=== PATIENT | female | born 1980 | race Caucasian/White ===

== ENCOUNTER → 2018-06-10 13:28 | Outpatient (CLI) | payer MEDICAID, SELFPAY ==
[2018-06-10 13:56] LABS: Basophils % 0.5 % (0.1-2.0); Eosinophils # 0.1 K/mm3 (0.0-0.4); Hematocrit 38.8 % (37.0-47.0); Hemoglobin 11.7 g/dL (12.2-16.2); Lymphocytes # 1.5 K/mm3 (0.7-4.5); Lymphocytes % 32.7 % (10-50); Mean Corpuscular HGB Conc 30.2 g/dL (31.8-35.4); Mean Corpuscular Hemoglobin 23.8 pg (27.0-31.2); Mean Corpuscular Volume 78.8 fl (81-99); Mean Platelet Volume 10.1 fl (7.4-10.4); Monocytes # 0.3 K/mm3 (0.1-1.0); Monocytes % 5.6 % (1.7-9.3); Neutrophils # 2.8 K/mm3 (1.8-7.8); Neutrophils % 60.2 % (37.0-80.0); Platelet Count 215 K/mm3 (142-424); Red Blood Count 4.92 M/mm3 (4.20-5.40); Red Cell Distribution Width 17.8 % (11.5-17.5); White Blood Count 4.6 K/mm3 (4.8-10.8)
[2018-06-10 14:31] LABS: Alanine Aminotransferase 25 U/L (12-78); Albumin Level 4.2 gm/dL (3.4-5.0); Albumin/Globulin Ratio 1.2 (1.1-1.8); Alkaline Phosphatase 81 U/L (46-116); Anion Gap 16.7 mEq/L (5-15); Aspartate Amino Transferase 20 U/L (15-37); Bilirubin,Total 0.4 mg/dL (0.2-1.0); Blood Urea Nitrogen 7 mg/dL (7-18); Calcium 8.8 mg/dL (8.5-10.1); Carbon Dioxide 24 mmol/L (21.0-32.0); Chloride 105 mmol/L (98-107); Creatinine,Serum 0.66 mg/dL (0.55-1.02); Estimated Glomerular Filt Rate 100 ml/min (>60); Ferritin 6 ng/mL (8-388); Free T4 (Free Thyroxine) 0.77 ng/dl (0.76-1.46); GFR (African American) 121 ML/MIN (>60); Globulin 3.6 gm/dl (1.3-3.2); Glucose 89 mg/dL (74-106); Potassium 4.7 mmoL/L (3.5-5.1); Sodium 141 mmol/L (136-145); Thyroid Stimulating Hormone 2.25 uIU/ml (0.358-3.740); Total Protein,Serum 7.8 gm/dL (6.4-8.2)
[2018-06-10 14:41] LABS: Erythrocyte Sedimentation Rate 0 mm/hr (0-20)
[2018-06-11 07:14] LABS: Hep A Ab, IgM Negative (Negative); Hepatitis B Core Antibody IgM Negative (Negative); Hepatitis B Surface Antigen Negative (Negative)
[2018-06-11 07:18] LABS: Hepatitis C Antibody <0.1 s/co ratio (0.0-0.9)
[2018-06-11 09:14] LABS: Iron 21 ug/dL (27-159); UIBC 451 ug/dL (131-425)
[2018-06-12 05:35] LABS: Iron Saturation 4 % (15-55); Vitamin D 25 Hydroxy 30.1 ng/mL (30.0-100.0)
== END ==
PROVIDERS: Visit Provider Emergency Medicine
DX: F41.9 Anxiety disorder, unspecified (principal); R53.83 Other fatigue; R01.1 Cardiac murmur, unspecified; I34.1 Nonrheumatic mitral (valve) prolapse
CPT/HCPCS: 80053; 80074; 82652; 82728; 83540; 83550; 84439; 84443; 85025; 85651

== ENCOUNTER → 2018-07-06 09:32 | Outpatient (CLI) | payer MEDICAID, SELFPAY ==
--- NOTE | 2018-07-06 09:34 | CA_ITS ---
PROCEDURE: 2-D M-mode and color Doppler study INDICATIONS FOR THE TEST: Chest pain COPD Heart Murmur Tobacco Smoking Palpitations Fatigue Syncope Edema Hypertension Diabetes Mellitus Rheumatic Fever SOB HEATH Obesity Hyperlipidemia Family History HD Additional History HX MVP PATIENT INFORMATION HEIGHT: 64 WEIGHT:128 GENDER: Female B/P:140/81 2-D/M-MODE INTERPRETATION: 2-D MEASUREMENTS OBSERVED VALUES IN CMS Right Ventricular Dimension (RVDd) 1.4 Interventricular Septum (Thickness)(IVsd) 0.9 Left Ventricular Internal Dimensions(LVIDd) 4.6 Left Ventricular Posterior Wall (Thickness)(LVPWd) 0.5 Aortic Root 2.7 Aortic Cusp Separation 1.6 Left Atrial Dimensions (LAD) 2.9 2D 1. Left atrium is normal size, left ventricle is normal size, there is no concentric left ventricular hypertrophy, visually estimated ejection fraction 55% with no regional wall motion abnormality. 2. The right atrium and right ventricle are relatively normal size and function. 3. The aortic valve is grossly normal. 4. The mitral and tricuspid valve are grossly normal, there is no mitral valve prolapse. 5. The pulmonic valve is poorly visualized. 6. No significant pericardial effusion noted. DOPPLER INTERROGATION: Doppler interrogation of the aortic, mitral and tricuspid valvular presence of mild tricuspid regurgitation, tricuspid regurgitation jet velocity is inadequate for calculation of the right ventricular systolic pressure, diastolic parameters are within normal range. CONCLUSION: 1. Normal left ventricular size, preserved left ventricular systolic function, visually estimated ejection fraction of 55% with no regional wall motion abnormality, diastolic parameters are within normal range. 2. No obvious mitral valve prolapse or mitral regurgitation. 3. Mild tricuspid regurgitation. 4. No significant pericardial effusion noted.
[2018-07-06 21:25] LABS: Amphetamine/Metha Screen,Urine Negative ng/mL (<1000); Barbiturates Screen,Urine Negative ng/mL (<200); Benzodiazepines Screen,Urine Negative ng/mL (<200); Cannabinoid Screen,Urine Positive ng/mL (<50); Cocaine Screen,Urine Negative ng/mL (<300); Methadone Screen,Urine Negative ng/mL (<300); Opiate Screen,Urine Negative ng/mL (<300); Phencyclidine Screen,Urine Negative ng/mL (<25)
== END ==
PROVIDERS: Nurse Practitioner Family; PCP Emergency Medicine; Visit Provider Emergency Medicine
DX: I34.1 Nonrheumatic mitral (valve) prolapse (principal); R01.1 Cardiac murmur, unspecified; Z79.899 Other long term (current) drug therapy
CPT/HCPCS: 80305; 93306

== ENCOUNTER → 2018-07-06 19:10 | Outpatient (CLI) | payer MEDICAID, SELFPAY | PROVIDERS: Visit Provider Emergency Medicine | DX: Z79.899 Other long term (current) drug therapy (principal) | CPT/HCPCS: 80305 ==

== ENCOUNTER → 2018-07-13 16:54 | Outpatient (CLI) | payer MEDICAID, SELFPAY ==
--- NOTE | 2018-07-13 16:57 | MM_ITS ---
MM Dig screening mamm BI w/CAD CAD Screening COMPARISON: None, this is baseline INDICATION: There is a history of breast cancer in patient's maternal aunt and maternal cousins. TECHNIQUE: Standard CC and MLO images were obtained. R2 CAD reviewed. FINDINGS: Prominent diffuse somewhat heterogenic fibroglandular densities are seen throughout both breasts. The findings are bilateral and symmetrical. There is no suspicious lesion in either breast and there are no suspicious microcalcifications. IMPRESSION: Diffusely dense parenchymal pattern with no suspicious lesion seen BI-RADS Category: 1 Negative RECOMMENDED FOLLOW-UP: 1YR - 1 YEAR FOLLOW-UP (A letter has been sent to the patient regarding results of the study.)
== END ==
PROVIDERS: PCP Emergency Medicine; Visit Provider Emergency Medicine
DX: N63.20 Unspecified lump in the left breast, unspecified quadrant (principal); Z12.31 Encounter for screening mammogram for malignant neoplasm of breast
CPT/HCPCS: 77067

== ENCOUNTER → 2018-07-27 14:17 | Outpatient (CLI) | payer MEDICAID, SELFPAY ==
[2018-07-27 14:42] LABS: Amphetamine/Metha Screen,Urine Negative ng/mL (<1000); Barbiturates Screen,Urine Negative ng/mL (<200); Benzodiazepines Screen,Urine Negative ng/mL (<200); Cannabinoid Screen,Urine Positive ng/mL (<50); Cocaine Screen,Urine Negative ng/mL (<300); Methadone Screen,Urine Negative ng/mL (<300); Opiate Screen,Urine Negative ng/mL (<300); Phencyclidine Screen,Urine Negative ng/mL (<25)
[2018-08-01 06:15] LABS: Alprazolam Negative (Cutoff=100); Benzodiazepines Positive ng/mL (Cutoff=100); Clonazepam Positive (.); Flurazepam Negative (Cutoff=100); Lorazepam Negative (Cutoff=100); Midazolam Negative (Cutoff=100); Temazepam Negative (Cutoff=100); Triazolam Negative (Cutoff=100)
[2018-08-01 07:01] LABS: Clonazepam Confirm 200 ng/mL (Cutoff=100)
== END ==
PROVIDERS: Visit Provider Emergency Medicine
DX: Z79.899 Other long term (current) drug therapy (principal)
CPT/HCPCS: 80305; 80346

== ENCOUNTER → 2018-10-24 13:56 | Outpatient (CLI) | payer MEDICAID, SELFPAY ==
[2018-10-24 14:28] LABS: Amphetamine/Metha Screen,Urine Negative ng/mL (<1000); Barbiturates Screen,Urine Negative ng/mL (<200); Benzodiazepines Screen,Urine Negative ng/mL (<200); Cannabinoid Screen,Urine Positive ng/mL (<50); Cocaine Screen,Urine Negative ng/mL (<300); Methadone Screen,Urine Negative ng/mL (<300); Opiate Screen,Urine Negative ng/mL (<300); Phencyclidine Screen,Urine Negative ng/mL (<25)
[2018-11-02 09:18] LABS: Alprazolam Negative (Cutoff=100); Benzodiazepines Negative ng/mL (Cutoff=100); Clonazepam Negative (Cutoff=100); Flurazepam Negative (Cutoff=100); Lorazepam Negative (Cutoff=100); Midazolam Negative (Cutoff=100); Temazepam Negative (Cutoff=100); Triazolam Negative (Cutoff=100)
== END ==
PROVIDERS: Visit Provider Emergency Medicine
DX: Z79.899 Other long term (current) drug therapy (principal)
CPT/HCPCS: 80305; 80346

== ENCOUNTER → 2019-01-23 13:32 | Outpatient (CLI) | payer MEDICAID, SELFPAY ==
[2019-01-23 14:25] LABS: Amphetamine/Metha Screen,Urine Negative ng/mL (<1000); Barbiturates Screen,Urine Negative ng/mL (<200); Benzodiazepines Screen,Urine Negative ng/mL (<200); Cannabinoid Screen,Urine Positive ng/mL (<50); Cocaine Screen,Urine Negative ng/mL (<300); Methadone Screen,Urine Negative ng/mL (<300); Opiate Screen,Urine Negative ng/mL (<300); Phencyclidine Screen,Urine Negative ng/mL (<25)
== END ==
PROVIDERS: Visit Provider Emergency Medicine
DX: M79.7 Fibromyalgia (principal)
CPT/HCPCS: 80305

== ENCOUNTER 2020-05-31 14:32 | Emergency (ER) | payer MEDICAID, SELFPAY ==
[2020-05-31 15:17] VITALS: BP 110/61; PULSE 75; RESP 18; TEMP 36.6; O2SAT 100; BMI 18.9
--- NOTE | 2020-05-31 15:38 | HMH.EDUTC ---
[facility] [place] Clinical Impression: UTI (urinary tract infection) Qualifiers: Urinary tract infection type: site unspecified Hematuria presence: with hematuria Qualified Code(s): N39.0 - Urinary tract infection, site not specified Disposition: Home, Self-Care Condition on Discharge: Good Instructions: Urinary Tract Infection, DI for Urinary Tract Infection (UTI) Additional Instructions: Drink plenty of fluids. Take tylenol or ibuprofen for pain or fever. Take the medications as directed. Follow up with your regular doctor. GO TO THE ER FOR ANY WORSENING SYMPTOMS The pyridium will make your urine turn orange, this is an expected side effect. It will stain your clothes if it comes into contact with them. Prescriptions: Ondansetron [Zofran 4mg ODT] 4 mg PO Q8HP PRN #12 tab.rapdis PRN Reason: Nausea Transmission Status: Received by [facility] Ciprofloxacin HCl [Cipro 500mg Tab] 500 mg PO BID 7 Days #14 tab Transmission Status: Received by [facility] Phenazopyridine HCl [Pyridium 200mg Tablet] 200 pow PO TID #6 tab Transmission Status: Received by [facility] Referrals: Johnie Piedra MD [Primary Care Provider] - Time of Disposition: 15:54 Medical Decision Making - Medical Records Medical records reviewed: No: I reviewed the patient's medical records. - Ulises Inquiry Pt receiving controlled substance: No Vital Signs: 05/31/20 15:17 05/31/20 15:57 Temperature 97.9 F 97.9 F Temperature Source Oral Pulse Rate 75 Pulse Rate [Right Brachial] 75 Respiratory Rate 18 18 Blood Pressure 110/61 Blood Pressure [Right Arm] 110/61 Blood Pressure Mean [Right Arm] 77 Blood Pressure Source [Right Arm] Automatic Cuff Blood Pressure Position [Right Arm] Sitting 02 Sat by Pulse Oximetry 100 Oxygen Delivery Method Room Air - Lab Data Lab results reviewed: Yes: I reviewed the patient's lab results. Lab Results 05/31/20 15:44: Urine Color Yellow, Urine Appearance Clear, Urine pH 6.0, Ur Specific [place] <= 1.005, Urine Protein Negative, Urine Glucose (UA) Negative, Urine Ketones Negative, Urine Blood 2+, Urine Nitrate Negative, Urine Bilirubin Negative, Urine Urobilinogen 0.2, Ur Leukocyte Esterase 2+ A Orders (Tests/Meds): ORDERS Category Date Time Status Urine Culture Stat Micro 05/31/20 13:10 [place] [facility] [place] - General Stated complaint: Possible kidney infection Time Seen by Provider: 05/31/20 15:42 Mode of Arrival: Ambulatory Source of Information: Patient Limitations: No Limitations Description of Symptoms (Recalled from Triage Doc. by RN): PATIENT C/O BURNING WITH URINATION HEENT Symptoms (Recalled from RN notes): No Resp Symptoms (Recalled from RN notes): No Skin Symptoms (Recalled from RN notes): No MS Symptoms (Recalled from RN notes): No Functional Status (Recalled from RN notes): WNL - History of Present Illness Provider Complaint: She states that since yesterday she has had low back pain and burning with urination. - Related Data Previous Rx's Medication Instructions Recorded Ciprofloxacin HCl [Cipro 500mg 500 mg PO BID 7 Days #14 tab 05/31/20 Tab] Ondansetron [Zofran 4mg ODT] 4 mg PO Q8HP PRN #12 tab.rapdis 05/31/20 Phenazopyridine HCl [Pyridium 200 pow PO TID #6 tab 05/31/20 200mg Tablet] Allergies Allergy/AdvReac Type Severity Reaction Status Date / Time No Known Allergies Allergy Verified 05/31/20 15:25 - Worker's Comp Is this a Worker's Comp case?: No [facility] History - Hepatitis A Screen Drug use history?: No High risk sexual behaviors?: No History of sexually transmitted infection?: No Currently employed?: No Childcare worker?: No Do you have indoor plumbing?: Yes Do you have electricity?: Yes Attestation statement:: This patient has been screened for Hepatitis A risk factors. I have reviewed the patient's past medical history: Y
[2020-05-31 15:57] VITALS: BP 110/61; PULSE 75; RESP 18; TEMP 36.6; O2SAT 100
[2020-05-31 16:45] LABS: Apearance,Urine Clear (Clear); Color,Urine Yellow (Yellow); Specific Gravity, Urine <= 1.005 (1.005-1.030)
[2020-05-31 16:46] LABS: Bilirubin,Urine Negative (Negative); Blood, Urine 2+ (Negative); Glucose,Urine (UA) Negative (Negative); Ketones,Urine Negative (Negative); Protein,Urine Negative (Negative); Urobilinogen,Urine 0.2 EU/dl (0.2)
[2020-05-31 16:47] LABS: UTC Leukocyte Esterase,Urine 2+ (Negative); UTC Nitrate,Urine Negative (Negative)
== END 2020-05-31 16:05 | disposition home or self-care (01) ==
PROVIDERS: Emergency Provider Nurse Practitioner Family; PCP Emergency Medicine
DX: N30.00 Acute cystitis without hematuria (principal)
CPT/HCPCS: 81003; 87086; 87088; 87186; 99201

== ENCOUNTER 2020-06-15 12:35 | Emergency (ER) | payer MEDICAID, SELFPAY ==
[2020-06-15 12:53] VITALS: BP 132/87; PULSE 94; RESP 18; TEMP 36.9; O2SAT 99; BMI 18.8
--- NOTE | 2020-06-15 13:10 | HMH.EDUTC ---
[facility] [place] Clinical Impression: UTI (urinary tract infection) Qualifiers: Urinary tract infection type: site unspecified Hematuria presence: with hematuria Qualified Code(s): N39.0 - Urinary tract infection, site not specified; R31.9 - Hematuria, unspecified Disposition: Home, Self-Care Condition on Discharge: Good Instructions: DI for Urinary Tract Infection (UTI), Urinary Tract Infection, Nitrofurantoin Additional Instructions: *Increase fluids. Water not Soda or Tea *Start antibiotic immediately and be sure to take as ordered for the FULL length of time although you should start to see improvement over the next 48 hours *Pyridium as needed Remember this medication will turn your urine Lamb. This is normal but it will stain what ever it gets on *You should not use Pyridium for more than 48 hours. If so , follow up with your primary physician to review urine culture and ensure that antibiotic is adequate for infection *Be SURE to follow up anytime for new or worsening symptoms with your family doctor. AND in 48 hours for urine culture results with your family doctor, if you do not have a doctor then you may call back to the [facility] for urine culture results and further treatment. We do recommend that you choose and establish care with a Primary Care Physician. AND follow up with them in 10-14 days to repeat UA to ensure infection is resolved and blood no longer present *Be sure to let your PCP know that we sent urine cultures from the [facility] so they can follow up to ensure that you area the on the correct antibiotic Call your doctor office and make appointment for 48 hours (2 days from today) to follow up and get the results of your urine culture and further treatment Prescriptions: Nitrofurantoin Monohyd/M-Cryst [Macrobid 100 mg Capsule] 100 mg PO BID 10 Days #20 cap Transmission Status: Pending to [facility] # Phenazopyridine HCl [Pyridium 200mg Tablet] 200 pow PO TID #6 tab Transmission Status: Pending to [facility] # Referrals: Johnie Piedra MD [Primary Care Provider] - As needed Time of Disposition: 13:33 Medical Decision Making - Ulises Inquiry Pt receiving controlled substance: No Ulises was queried for this patient: No Vital Signs: 06/15/20 12:53 Temperature 98.4 F Temperature Source Oral Pulse Rate [Right Brachial] 94 H Respiratory Rate 18 Blood Pressure [Right Arm] 132/87 Blood Pressure Mean [Right Arm] 102 Blood Pressure Source [Right Arm] Automatic Cuff Blood Pressure Position [Right Arm] Sitting 02 Sat by Pulse Oximetry 99 - Lab Data Lab results reviewed: Yes: I reviewed the patient's lab results. Lab Results 06/15/20 12:50: Urine Color Yellow, Urine Appearance Turbid, Urine pH 6.0, Ur Specific [place] 1.025, Urine Protein 2+, Urine Glucose (UA) Negative, Urine Ketones Negative, Urine Blood 3+, Urine Nitrate Negative, Urine Bilirubin Negative, Urine Urobilinogen 0.2, Ur Leukocyte Esterase 2+ A Orders (Tests/Meds): ED MEDICATIONS Discontinued Medications Generic Name Dose Route Start Last Admin Trade Name Freq PRN Reason Stop Dose Admin Ceftriaxone Sodium 1 gm 06/15/20 13:19 06/15/20 13:31 Ceftriaxone 1gm Vial IM 06/15/20 13:20 1 gm ONCE ONE Administration Protocol Lidocaine HCl 0 ml 06/15/20 13:19 06/15/20 13:31 Lidocaine 1% 5ml Pf Vial IM 06/15/20 13:20 2.1 ml ONCE ONE Administration ORDERS Category Date Time Status Urinalysis and Microscopic Stat Lab 06/15/20 12:50 Results Urine Culture Stat Micro 06/15/20 12:50 Received Medical Decision Narrative: Viewed patient previous urine culture that was obtained on 05/31/20 and patient was on Cipro which shows resistant to Bacteria grown on culture (Ecoli) patient educated on importantance of follow up when urine cultures are done to make sure that you are on the correct medication to clear up the infection [facility] [place] - General Stated complaint: kidney
[2020-06-15 13:23] LABS: Microscopic, Urine URINE MICROSCOPIC (MICROSCOPIC)
[2020-06-15 13:25] LABS: Bilirubin,Urine Negative (Negative); Blood, Urine 3+ (Negative); Color,Urine YELLOW (Yellow); Glucose,Urine (UA) Negative (Negative); Ketones,Urine Negative (Negative); Leukocyte Esterase,Urine 2+ (Negative); Nitrate,Urine Negative (Negative); Protein,Urine 2+ (Negative); Specific Gravity, Urine 1.025 (1.005-1.030); Urobilinogen,Urine 0.2 EU/dl (0.2)
[2020-06-15 13:27] LABS: Appearance,Urine Turbid (Clear)
[2020-06-15 13:48] VITALS: BP 132/87; PULSE 94; RESP 18; TEMP 36.9; O2SAT 99
[2020-06-15 14:23] LABS: Bacteria,Urine 1+ /lpf
== END 2020-06-15 13:49 | disposition home or self-care (01) ==
PROVIDERS: Emergency Provider Nurse Practitioner; PCP Emergency Medicine
DX: N30.00 Acute cystitis without hematuria (principal); B96.20 Unspecified Escherichia coli [E. coli] as the cause of diseases classified elsewhere; F41.8 Other specified anxiety disorders; M79.7 Fibromyalgia; F17.210 Nicotine dependence, cigarettes, uncomplicated
CPT/HCPCS: 81001; 87086; 87088; 87186; 96372; 99202

== ENCOUNTER → 2021-05-22 18:34 | Outpatient (CLI) | payer MEDICAID, SELFPAY | PROVIDERS: PCP Emergency Medicine; Visit Provider Nurse Practitioner | DX: Z20.822 Contact with and (suspected) exposure to COVID-19 (principal) | CPT/HCPCS: C9803; U0003; U0005 ==

== ENCOUNTER 2021-08-25 13:53 | Inpatient (IN) | payer MEDICAID, SELFPAY ==
[2021-08-25] VITALS (17 sets, daily range): BP systolic 91–105; BP diastolic 45–78; PULSE 71–134; RESP 16–22; TEMP 36.4–39.5; O2SAT 96–100; BMI 19.7; BMI 21.6
--- NOTE | 2021-08-25 14:20 | XR_ITS ---
FINAL REPORT TECHNIQUE: Single view chest CLINICAL HISTORY: cough, fever FINDINGS: A single view of the chest was obtained. The heart and mediastinum are within normal limits. The lungs are clear. There is no pneumothorax. Osseous structures are unremarkable. IMPRESSION: No acute cardiopulmonary process. Reviewed, Interpreted and Dictated by Александр Mckinnon MD Transcribed by Dodie Shore Authenticated by Александр Mckinnon MD on 08/25/2021 04:07:22 PM [facility]
[2021-08-25 14:29] LABS: Microscopic, Urine URINE MICROSCOPIC (MICROSCOPIC)
[2021-08-25 14:31] LABS: Appearance,Urine CLEAR (Clear); Bilirubin,Urine Negative (Negative); Blood, Urine TRACE-I (Negative); Color,Urine STRAW (Yellow); Glucose,Urine (UA) Negative (Negative); Ketones,Urine Negative (Negative); Leukocyte Esterase,Urine 3+ (Negative); Nitrate,Urine Negative (Negative); Protein,Urine 1+ (Negative); Urobilinogen,Urine 0.2 EU/dl (0.2)
[2021-08-25 14:34] LABS: Urine Pregnancy, HCG Qual. Negative (Negative)
[2021-08-25 14:44] LABS: Lactic Acid 1.7 mmol/L (0.7-2.1)
[2021-08-25 14:44] LABS: Alanine Aminotransferase 18 U/L (12-78); Albumin Level 4.6 g/dl (3.5-5.0); Albumin/Globulin Ratio 1.4 (1.1-1.8); Alkaline Phosphatase 85 U/L (38-126); Anion Gap 15.7 mEq/L (5-15); Aspartate Amino Transferase 34 U/L (14-36); Basophils % 0.1 % (0.1-2.0); Bilirubin,Total 1.4 mg/dl (0.2-1.3); Blood Urea Nitrogen 4 mg/dl (7-17); Calcium 9.6 mg/dl (8.4-10.2); Carbon Dioxide 24 mmol/L (22.0-30.0); Chloride 95 mmol/L (98-107); Creatinine Clearance Estimated 101 mL/min (50-200); Estimated Glomerular Filt Rate 110 ml/min (>60); GFR (African American) 133 ML/MIN (>60); Globulin 3.4 g/dL (1.3-3.2); Glucose 119 mg/dl (74-100); Hematocrit 23.4 % (37.0-47.0); Lipase 12 U/L (23-300); Lymphocytes # 0.9 K/mm3 (0.7-4.5); Lymphocytes % 6.1 % (10-50); Mean Corpuscular HGB Conc 26.2 g/dL (31.8-35.4); Mean Corpuscular Hemoglobin 16.8 pg (27.0-31.2); Mean Corpuscular Volume 64.2 fl (81-99); Mean Platelet Volume 7.6 fl (7.4-10.4); Monocytes # 0.7 K/mm3 (0.1-1.0); Monocytes % 4.5 % (1.7-9.3); Neutrophils % 89.2 % (37.0-80.0); Platelet Count 186 K/mm3 (142-424); Potassium 3.7 mmoL/L (3.5-5.1); Red Blood Count 3.65 M/mm3 (4.20-5.40); Red Cell Distribution Width 19.2 % (11.5-17.5); Sodium 131 mmol/L (136-145); White Blood Count 14.6 K/mm3 (4.8-10.8)
[2021-08-25 14:47] LABS: Bacteria,Urine 1+ /lpf; RBC,Urine Occasional #/hpf (0-3); WBC,Urine 20-50 #/hpf (0-3)
[2021-08-25 15:01] LABS: Troponin I < 0.01 ng/ml (0.00-0.034)
--- NOTE | 2021-08-25 15:03 | CT_ITS ---
FINAL REPORT TECHNIQUE: After the administration of intravenous contrast, axial images were obtained through the abdomen and pelvis by computed tomography. This study was performed with technique to keep radiation doses as low as reasonably achievable, (ALARA). Individualized dose reduction techniques using automated exposure control or adjustment of the MA and/or KV according to the patient's size were employed. CLINICAL HISTORY: abd pain with distension FINDINGS: Abdomen: The lung bases are clear. The liver is normal in size and attenuation. The spleen is unremarkable. The adrenals are normal. The pancreas is unremarkable. The kidneys enhance appropriately. There is mild bilateral hydronephrosis. The aorta is normal in caliber. There is no free fluid or adenopathy. Pelvis: The appendix is normal. The urinary bladder is unremarkable. There is no free fluid or adenopathy. A large, midline pelvic mass is seen which appears to represent a diffusely enlarged uterus containing a large amount of heterogeneous debris. Uterus measures 14.7 cm in transverse dimension and 13.3 cm in AP dimension. IMPRESSION: Markedly enlarged uterus containing large amount of heterogeneous material. Neoplasia not excluded. Recommend gynecologic evaluation. Reviewed, Interpreted and Dictated by Александр Mckinnon MD Transcribed by Dodie Shore Authenticated by Александр Mckinnon MD on 08/25/2021 04:58:09 PM [facility]
[2021-08-25 15:09] LABS: Hemoglobin 6.1 g/dL (12.2-16.2)
[2021-08-25 15:10] LABS: MANUAL DIFFERENTIAL MANUAL DIFFERENTIAL (MANUAL DIFF)
--- NOTE | 2021-08-25 15:19 | HMH.EDGENADL ---
ED Disposition Clinical Impression: Endometritis UTI (urinary tract infection) Qualifiers: Urinary tract infection type: acute cystitis Hematuria presence: with hematuria Qualified Code(s): N30.01 - Acute cystitis with hematuria Sepsis Qualifiers: Sepsis type: sepsis due to unspecified organism Sepsis acute organ dysfunction status: unspecified Qualified Code(s): A41.9 - Sepsis, unspecified organism Disposition: Admitted As Inpatient Condition on Discharge: Serious Referrals: Johnie Piedra MD [Primary Care Provider] - - Critical Care Critical Care Time: No Attestation: On 08/25/21, the high probability of a clinically significant, sudden or life threatening deterioration of the following system(s) required my full and direct attention, intervention and personal management. The time I documented below is in addition to time spent performing reported procedures but includes the following listed in this critical care notation. Medical Decision Making - Medical Records Medical records reviewed: Yes: I reviewed the patient's medical records. - Ulises Inquiry Pt receiving controlled substance: No Vital Signs: 08/25/21 13:55 08/25/21 16:49 Temperature 103.1 F H 98.9 F Temperature Source Oral Oral Pulse Rate 98 H Pulse Rate [Radial] 134 H Respiratory Rate 20 20 Blood Pressure 103/50 L Blood Pressure [Right Arm] 105/78 L Blood Pressure Mean [Right Arm] 87 Blood Pressure Position Sitting Blood Pressure Position [Right Arm] Sitting 02 Sat by Pulse Oximetry 96 98 Oxygen Delivery Method Room Air Room Air - Lab Data Lab Results 08/25/21 14:00: Urine HCG, Qual Negative 08/25/21 14:12: Lactate 1.7 08/25/21 14:12: SARS-CoV-2 (PCR) Not detected, Influenza A Untype (PCR) Not detected, Influenza Type B (PCR) Not detected 08/25/21 14:15: WBC 14.6 H, RBC 3.65 L, Hgb 6.1 L*, Hct 23.4 L, MCV 64.2 L, MCH 16.8 L, MCHC 26.2 L, RDW 19.2 H, Plt Count 186, MPV 7.6, Neut % (Auto) 89.2 H, Lymph % (Auto) 6.1 L, [place] % (Auto) 4.5, Eos % (Auto) 0.0 L, Baso % (Auto) 0.1, Neut # (Auto) 13.0 H, Lymph # (Auto) 0.9, [place] # (Auto) 0.7, Eos # (Auto) 0.0, Baso # (Auto) 0.0, Total Counted 100, Neutrophils % (Manual) 90 H, Band Neutrophils % 2.0, Lymphocytes % (Manual) 6 L, Monocytes % (Manual) 2, Platelet Estimate Normal, Hypochromasia 3+, Anisocytosis 2+, Microcytosis 2+ 08/25/21 14:15: Sodium 131 L, Potassium 3.7, Chloride 95 L, Carbon Dioxide 24, Anion Gap 15.7 H, BUN 4 L, Creatinine 0.60, Estimated Creat Clear 101, Estimated GFR 110, Est GFR ( Amer) 133, Glucose 119 H, Calcium 9.6, Total Bilirubin 1.4 H, AST 34, ALT 18, Alkaline Phosphatase 85, Total Protein 8.0, Albumin 4.6, Globulin 3.4 H, Albumin/Globulin Ratio 1.4 08/25/21 14:15: Urine Color Straw, Urine Appearance Clear, Urine pH 7.0, Ur Specific [place] 1.010, Urine Protein 1+, Urine Glucose (UA) Negative, Urine Ketones Negative, Urine Blood Trace-i, Urine Nitrate Negative, Urine Bilirubin Negative, Urine Urobilinogen 0.2, Ur Leukocyte Esterase 3+ A, Urine RBC Occasional, Urine WBC 20-50, Ur Squamous Epith Cells 5-10, Urine Bacteria 1+ 08/25/21 14:15: Troponin I < 0.01, Lipase 12 L 08/25/21 14:15: Blood Type Confirm B Negative 08/25/21 15:25: Blood Type B Negative, Antibody Screen Negative, Crossmatch (AHG) See Detail Result diagrams: 08/25/21 14:15 08/25/21 14:15 Orders (Tests/Meds): ED MEDICATIONS Generic Name Dose Route Start Last Admin Trade Name Freq PRN Reason Stop Dose Admin Ceftriaxone Sodium 1 gm/ 50 mls @ 100 mls/hr 08/25/21 15:15 08/25/21 15:07 Sodium Chloride IV 09/08/21 15:14 100 mls/hr Q24H VANESSA Administration Sodium Chloride 250 mls @ 25 mls/hr 08/25/21 15:15 Sod Chlor 0.9% 250ml Bag IV 08/26/21 15:14 .Q10H VANESSA Discontinued Medications Generic Name Dose Route Start Last Admin Trade Name Freq PRN Reason Stop Dose Admin Acetaminophen 1,000 mg 08/25/21 14:04 08/25/21 14:10 Acetaminophen 500mg Tab PO 08/25/21 14:
[2021-08-25 15:22] LABS: Coronavirus 19, PCR Not Detected (NotDetected); Influenza A, PCR Not Detected (NotDetected); Influenza B, PCR Not Detected (NotDetected)
[2021-08-25 16:38] LABS: Anisocytosis 2+; Hypochromasia 3+; Lymphocytes % 6 % (10-50); Microcytosis 2+; Monocytes % 2 % (2-9); Neutrophils % 90 % (42-76); Platelet Estimate Normal; Total Cells Counted 100
--- NOTE | 2021-08-25 17:30 | PC.NURSE ---
DR. STEWARD AT BEDSIDE
--- NOTE | 2021-08-25 17:44 | HMH.HP ---
*Admission Date: 08/25/21 *Chief complaint: Lower abdominal pain, anemia, UTI *History of present illness: She is a 41-year-old 3 para 3 lady who complains of a 4-day history of lower abdominal pain. She also has some abdominal distention. She has a mild white count and severe anemia with a hemoglobin of 6.1. Her urinalysis shows 3+ leuk esterase. She has a history of recurrent urinary tract infections. She does admit to a new partner over the last few months. She says that her fianc? of 5 years was cheating on her so she broke out off late last year. CT scan shows an enlarged uterus 14 cm in length with some tissue within the endometrial cavity. Its not clear whether she has an endometritis or possible STD. She does have a temperature as well as a white count so we will go ahead and admit her for IV antibiotics and possible endometritis. She also has a urinary tract infection. [facility] History I have reviewed the patient's past medical history: Yes Medical History: Reports:: Anxiety, Depression, Valvular Heart Disease *Have you ever received a pneumonia vaccine?: No *Have you received a flu vaccine this season?: No Other Medical History: Reports: Fibromyalgia Laterality Cases: Bilateral: Tonsillectomy Other Surgeries: Yes: Appendectomy, Amputation: No Fractures: No - *Social History Smoking Status: Current every day smoker # Packs/Day (cigarettes): 1 Alcohol Intake: never Alcohol Intake Frequency:: other Substance Use Type: marijuana, denies use *Occupational Status:: employed Household Members: spouse *Travel in the last 8 weeks: None - Psychiatric History Pschychiatric History:: Reports:: Anxiety, Depression Family Hx:: Cancer, Heart Attack Review of Systems - Review of Systems Review of systems:: pertinent systems reviewed and negative unless documented below - *Neurologic Denies headache(s) Meds Home Medications Medication Instructions Recorded Confirmed Type Escitalopram Oxalate 10 mg PO DAILY 08/25/21 08/25/21 History Gabapentin 600 mg PO TID 08/25/21 08/25/21 History Tramadol HCl [Tramadol 50mg 50 mg PO BID 08/25/21 08/25/21 History Tab] clonazePAM [Clonazepam] 0.5 mg PO TID 08/25/21 08/25/21 History Allergies Allergy/AdvReac Type Severity Reaction Status Date / Time No Known Allergies Allergy Verified 06/03/20 09:20 Exam Vital signs and Labs for Last 24 Hours: Temp Pulse Resp BP Pulse Ox 98.9 F 98 H 20 103/50 L 98 08/25/21 16:49 08/25/21 16:49 08/25/21 16:49 08/25/21 16:49 08/25/21 16:49 Laboratory Results - last 24 hr 08/25/21 14:00: Urine HCG, Qual Negative 08/25/21 14:12: Lactate 1.7 08/25/21 14:12: SARS-CoV-2 (PCR) Not detected, Influenza A Untype (PCR) Not detected, Influenza Type B (PCR) Not detected 08/25/21 14:15: WBC 14.6 H, RBC 3.65 L, Hgb 6.1 L*, Hct 23.4 L, MCV 64.2 L, MCH 16.8 L, MCHC 26.2 L, RDW 19.2 H, Plt Count 186, MPV 7.6, Neut % (Auto) 89.2 H, Lymph % (Auto) 6.1 L, [place] % (Auto) 4.5, Eos % (Auto) 0.0 L, Baso % (Auto) 0.1, Neut # (Auto) 13.0 H, Lymph # (Auto) 0.9, [place] # (Auto) 0.7, Eos # (Auto) 0.0, Baso # (Auto) 0.0, Total Counted 100, Neutrophils % (Manual) 90 H, Band Neutrophils % 2.0, Lymphocytes % (Manual) 6 L, Monocytes % (Manual) 2, Platelet Estimate Normal, Hypochromasia 3+, Anisocytosis 2+, Microcytosis 2+ 08/25/21 14:15: Sodium 131 L, Potassium 3.7, Chloride 95 L, Carbon Dioxide 24, Anion Gap 15.7 H, BUN 4 L, Creatinine 0.60, Estimated Creat Clear 101, Estimated GFR 110, Est GFR ( Amer) 133, Glucose 119 H, Calcium 9.6, Total Bilirubin 1.4 H, AST 34, ALT 18, Alkaline Phosphatase 85, Total Protein 8.0, Albumin 4.6, Globulin 3.4 H, Albumin/Globulin Ratio 1.4 08/25/21 14:15: Urine Color Straw, Urine Appearance Clear, Urine pH 7.0, Ur Specific [place] 1.010, Urine Protein 1+, Urine Glucose (UA) Negative, Urine Ketones Negative, Urine Blood Trace-i, Urine Nitrate Negative, Urine Bilirubin Negative, Urine Urobilinogen 0.2, Ur Le
--- NOTE | 2021-08-25 18:05 | PC.NURSE ---
REPORT CALLED TO FLOOR
[2021-08-26] VITALS (15 sets, daily range): BP systolic 97–156; BP diastolic 46–76; PULSE 80–95; RESP 14–21; TEMP 36.4–38.4; O2SAT 95–100; BMI 21.6
[2021-08-26 04:49] LABS: Basophils % 0.1 % (0.1-2.0); Eosinophils % 0.4 % (0.1-12.0); Hematocrit 26.1 % (37.0-47.0); Lymphocytes # 0.8 K/mm3 (0.7-4.5); Lymphocytes % 8.5 % (10-50); Mean Corpuscular HGB Conc 30.2 g/dL (31.8-35.4); Mean Corpuscular Hemoglobin 20.4 pg (27.0-31.2); Mean Corpuscular Volume 67.6 fl (81-99); Monocytes # 0.7 K/mm3 (0.1-1.0); Monocytes % 7.2 % (1.7-9.3); Neutrophils # 7.8 K/mm3 (1.8-7.8); Neutrophils % 83.9 % (37.0-80.0); Platelet Count 151 K/mm3 (142-424); Red Blood Count 3.85 M/mm3 (4.20-5.40); Red Cell Distribution Width 24.3 % (11.5-17.5); White Blood Count 9.3 K/mm3 (4.8-10.8)
[2021-08-26 04:57] LABS: Chloride 102 mmol/L (98-107); Sodium 132 mmol/L (136-145)
[2021-08-26 04:58] LABS: Potassium 3.6 mmoL/L (3.5-5.1)
[2021-08-26 04:59] LABS: Hemoglobin 7.9 g/dL (12.2-16.2)
[2021-08-26 05:00] LABS: Blood Urea Nitrogen 12 mg/dl (7-17); Creatinine Clearance Estimated 110 mL/min (50-200); Estimated Glomerular Filt Rate 110 ml/min (>60); GFR (African American) 133 ML/MIN (>60)
[2021-08-26 05:01] LABS: Anion Gap 10.6 mEq/L (5-15); Calcium 8.1 mg/dl (8.4-10.2); Carbon Dioxide 23 mmol/L (22.0-30.0); Glucose 88 mg/dl (74-100)
--- NOTE | 2021-08-26 07:24 | HMH.PHAVTE ---
[facility] Pharmacy VTE Monitoring - Patient Demographics Admission date: 08/25/21 Report Date: 08/26/21 Time: 07:24 Allergies/Adverse Reactions: Patient Allergies No Known Allergies Allergy (Verified 06/03/20 09:20) Height: 1.63 m Weight: 57.516 kg Patient Problems: Current Active Problems (This Medical Record has been edited. Action required.) Endometritis (Acute) Sepsis (Acute) Uterine hypertrophy (Acute) Anemia (Acute) UTI (urinary tract infection) (Acute) - VTE Risk Labs: VTE Related Lab Results Hgb 7.9 g/dL (12.2-16.2) L D 08/26/21 04:35 Hct 26.1 % (37.0-47.0) L 08/26/21 04:35 Plt Count 151 K/mm3 (142-424) 08/26/21 04:35 BUN 12 mg/dl (7-17) D 08/26/21 04:35 Creatinine 0.60 mg/dl (0.52-1.04) 08/26/21 04:35 Estimated Creat Clear 110 mL/min (50-200) 08/26/21 04:35 VTE Score: 4 VTE Risk Level: Low Risk - Prophylaxis VTE Prophylaxis Ordered?: Yes Types of VTE Prophylaxis: TEDS Knee High, Pharmacological Location of Applied Device: Bilateral Lower Extremeties Pharmacologic Type: Enoxaparin
--- NOTE | 2021-08-26 09:25 | HMH.CONS ---
*Admission Date: 08/25/21 *Reason for consult:: Abdominal Pain *History of present illness: 41-year-old female patient presents emergency room emergency department with reports of lower abdominal pain x4 days. She also has abdominal. She did have an elevated white count and a hemoglobin of 6.1. Urinalysis revealed 3+ leukocyte esterase, with a history of recurrent urinary tract infections. She does report a new sexual partner for the last few months after finding out her previous boyfriend of 5 years was having an affair. She does have a history of fibromyalgia and anxiety 08/25/21 Abd/Pelvic CT: FINDINGS: Abdomen: The lung bases are clear. The liver is normal in size and attenuation. The spleen is unremarkable. The adrenals are normal. The pancreas is unremarkable. The kidneys enhance appropriately. There is mild bilateral hydronephrosis. The aorta is normal in caliber. There is no free fluid or adenopathy. Pelvis: The appendix is normal. The urinary bladder is unremarkable. There is no free fluid or adenopathy. A large, midline pelvic mass is seen which appears to represent a diffusely enlarged uterus containing a large amount of heterogeneous debris. Uterus measures 14.7 cm in transverse dimension and 13.3 cm in AP dimension. IMPRESSION: Markedly enlarged uterus containing large amount of heterogeneous material. Neoplasia not excluded. Recommend gynecologic evaluation. Reviewed, Interpreted and Dictated by Александр Mckinnon MD 41-year-old female patient resting in bed quietly she does report continuing bilateral lower quadrant abdominal pain that is controlled with pain medicine. Abdomen is distended. Hemoglobin was 6.1 after 2 units packed red blood cells hemoglobin currently 7.9 [facility] History I have reviewed the patient's past medical history: Yes Medical History: Reports:: Anxiety, Depression, Hyperlipidemia, Hypertension, Valvular Heart Disease *Have you ever received a pneumonia vaccine?: No *Have you received a flu vaccine this season?: No Other Medical History: Reports: Anemia, Fibromyalgia Laterality Cases: Bilateral: Tonsillectomy Other Surgeries: Yes: Appendectomy, Amputation: No Fractures: No - *Social History Smoking Status: Current every day smoker # Packs/Day (cigarettes): 1 Alcohol Intake: current Alcohol Intake Frequency:: holidays/special occasions only Substance Use Type: marijuana *Occupational Status:: employed Household Members: spouse *Travel in the last 8 weeks: None - Psychiatric History Pschychiatric History:: Reports:: Anxiety, Depression Family Hx:: Cancer, Diabetes, Heart Attack, Hyperlipidemia, Hypertension Review of Systems - Review of Systems Review of systems:: unable to obtain - Constitutional Denies anorexia, Denies body ache(s) - Eyes Denies blurry vision, Denies change in vision - ENT Denies dental pain, Denies dizziness - *Cardiovascular Denies chest pain, Denies shortness of breath - *Respiratory Denies change in phlegm color, Denies chest congestion, Denies cough - *Gastrointestinal Reports abdominal pain, Denies coffee ground vomit, Denies bright, red blood in stools - *Genitourinary Reports painful urination, Reports frequent nighttime urination - *Musculoskeletal Denies muscle cramps, Denies muscle weakness - Integumentary/Breasts Denies bleeding lesions, Denies itching, Denies rash - *Neurologic Denies unsteadiness, Denies dizziness, Denies headache(s) - Psychiatric Denies abnormal sleep pattern, Denies anxiety - Endocrine Denies cold intolerance, Denies heat intolerance - Hematologic/Lymphatic Denies easy bleeding, Denies easy bruising - Allergic/Immunologic Denies GI upset with certain foods, Denies tongue swelling Meds Home Medications Medication Instructions Recorded Confirmed Type Escitalopram Oxalate 10 mg PO DAILY 08/25/21 08/25/21 History Gabapentin 600 mg PO TID 08/25/21 08/25/21 History Tramadol HCl [Tra
--- NOTE | 2021-08-26 09:32 | US_ITS ---
FINAL REPORT CLINICAL HISTORY: enlarged uterus; patient had recent CT scan COMPARISON: CT from the previous day FINDINGS: Transvaginal Ultrasound Technique: Transvaginal sonographic images of the pelvis were obtained. Findings: The uterus measures 17.6 x 13.8 by 11 cm. There is heterogeneous debris filling and distending the endometrial cavity. It is unclear if this is hemorrhage or a mass. The right ovary measures 3.8 cm. The left ovary measures 4.2 cm. Blood flow is noted to both ovaries. There is a small cyst in right ovary. IMPRESSION: Heterogeneous debris filling and distending the endometrial cavity. Unclear if this is hemorrhage or a mass. Gynecologic evaluation is highly recommended. Reviewed, Interpreted and Dictated by Александр Mckinnon MD Transcribed by Chris Cardozo Authenticated by Александр Mckinnon MD on 08/26/2021 12:44:47 PM [facility]
--- NOTE | 2021-08-26 09:58 | PC.NURSE ---
dr reilly asked for bladder scanner to be done on patient. results showed a volume of over [address] reilly ordered catheter to be placed and upon insertion only got out about 15ml. dulce maria green and dr ortiz were made aware of this
[2021-08-26 11:28] LABS: Microscopic,Cath URINE MICROSCOPIC (MICROSCOPIC)
[2021-08-26 11:46] LABS: Appearance,Urine/Cath CLEAR (Clear); Bilirubin,Cath Negative (Negative); Blood, Urine/Cath Negative (Negative); Color,Urine/Cath YELLOW (Yellow); Glucose,Urine/Cath (UA) Negative (Negative); Ketones,Urine/Cath TRACE (Negative); Leukocyte Esterase,Cath 1+ (Negative); Nitrate,Cath Negative (Negative); Protein,Urine/Cath TRACE (Negative); Specific Gravity, Urine/Cath 1.015 (1.005-1.030)
--- NOTE | 2021-08-26 11:46 | HMH.PHAINT ---
Home med rec complete
[2021-08-26 12:46] LABS: RBC,Urine/Cath Occasional # /hpf (0-3)
[2021-08-26 12:47] LABS: Bacteria,Urine/Cath 2+ /lpf; Mucus,Urine/Cath 2+ /lpf; WBC,Urine/Cath 20-50 #/hpf (0-3)
--- NOTE | 2021-08-26 13:58 | HMH.ACPN2 ---
Internal Medicine - PN: Subj *Date: 08/26/21 *Time: 13:58 Interval history: She is doing a little better this morning. She is hungry. She did have a temperature of 101.1. She is on Rocephin and we have decided to change her antibiotics to Zosyn in order to have broader coverage. Ultrasound this morning shows that she has an enlarged uterus with a large fibroid. Her urine has grown out gram negative rods. She was seen in my office and I did swabs for chlamydia and gonorrhea. We also did complete STD work-up with blood work. On examination in the office there was some watery yellowish discharge in the vagina. Exam Vital signs and Labs for Last 24 Hours: Temp Pulse Resp BP Pulse Ox 101.1 F H 95 H 16 156/73 H 95 08/26/21 08:00 08/26/21 08:00 08/26/21 08:00 08/26/21 08:00 08/26/21 08:00 Laboratory Results - last 24 hr 08/25/21 14:00: Urine HCG, Qual Negative 08/25/21 14:12: Lactate 1.7 08/25/21 14:12: SARS-CoV-2 (PCR) Not detected, Influenza A Untype (PCR) Not detected, Influenza Type B (PCR) Not detected 08/25/21 14:15: WBC 14.6 H, RBC 3.65 L, Hgb 6.1 L*, Hct 23.4 L, MCV 64.2 L, MCH 16.8 L, MCHC 26.2 L, RDW 19.2 H, Plt Count 186, MPV 7.6, Neut % (Auto) 89.2 H, Lymph % (Auto) 6.1 L, [place] % (Auto) 4.5, Eos % (Auto) 0.0 L, Baso % (Auto) 0.1, Neut # (Auto) 13.0 H, Lymph # (Auto) 0.9, [place] # (Auto) 0.7, Eos # (Auto) 0.0, Baso # (Auto) 0.0, Total Counted 100, Neutrophils % (Manual) 90 H, Band Neutrophils % 2.0, Lymphocytes % (Manual) 6 L, Monocytes % (Manual) 2, Platelet Estimate Normal, Hypochromasia 3+, Anisocytosis 2+, Microcytosis 2+ 08/25/21 14:15: Sodium 131 L, Potassium 3.7, Chloride 95 L, Carbon Dioxide 24, Anion Gap 15.7 H, BUN 4 L, Creatinine 0.60, Estimated Creat Clear 101, Estimated GFR 110, Est GFR ( Amer) 133, Glucose 119 H, Calcium 9.6, Total Bilirubin 1.4 H, AST 34, ALT 18, Alkaline Phosphatase 85, Total Protein 8.0, Albumin 4.6, Globulin 3.4 H, Albumin/Globulin Ratio 1.4 08/25/21 14:15: Urine Color Straw, Urine Appearance Clear, Urine pH 7.0, Ur Specific [place] 1.010, Urine Protein 1+, Urine Glucose (UA) Negative, Urine Ketones Negative, Urine Blood Trace-i, Urine Nitrate Negative, Urine Bilirubin Negative, Urine Urobilinogen 0.2, Ur Leukocyte Esterase 3+ A, Urine RBC Occasional, Urine WBC 20-50, Ur Squamous Epith Cells 5-10, Urine Bacteria 1+ 08/25/21 14:15: Troponin I < 0.01, Lipase 12 L 08/25/21 14:15: Blood Type Confirm B Negative 08/25/21 15:25: Blood Type B Negative, Antibody Screen Negative, Crossmatch (AHG) See Detail 08/26/21 04:35: WBC 9.3 D, RBC 3.85 L, Hgb 7.9 L D, Hct 26.1 L, MCV 67.6 L, MCH 20.4 L, MCHC 30.2 L, RDW 24.3 H D, Plt Count 151, MPV 8.0, Neut % (Auto) 83.9 H, Lymph % (Auto) 8.5 L, [place] % (Auto) 7.2, Eos % (Auto) 0.4, Baso % (Auto) 0.1, Neut # (Auto) 7.8, Lymph # (Auto) 0.8, [place] # (Auto) 0.7, Eos # (Auto) 0.0, Baso # (Auto) 0.0 08/26/21 04:35: Sodium 132 L, Potassium 3.6, Chloride 102, Carbon Dioxide 23, Anion Gap 10.6, BUN 12 D, Creatinine 0.60, Estimated Creat Clear 110, Estimated GFR 110, Est GFR ( Amer) 133, Glucose 88 D, Calcium 8.1 L 08/26/21 09:45: Urine Color Yellow, Urine Appearance Clear, Urine pH 6.0, Ur Specific [place] 1.015, Urine Protein Trace, Urine Glucose (UA) Negative, Urine Ketones Trace, Urine Blood Negative, Urine Nitrate Negative, Urine Bilirubin Negative, Urine Urobilinogen 1.0, Ur Leukocyte Esterase 1+ A, Urine RBC Occasional, Urine WBC 20-50 A, Ur Squamous Epith Cells 10-20, Urine Bacteria 2+ A I & O for Last 24 hours: Intake & Output 08/24/21 08/25/21 08/26/21 08/27/21 11:59 11:59 11:59 11:59 Intake Total 500 / 500 560 / 560 Output Total 115 / 115 Balance 385 / 385 560 / 560 Weight 126 lb 12.8 oz Microbiology Reports for the Last 24 Hours: Microbiology 08/25/21 14:15 Urine,Clean Catch Urine Culture - Preliminary Gram Negative Rods - Constitutional no acute distress - *Routine HEENT Exam He
--- NOTE | 2021-08-26 18:44 | PC.NURSE ---
Pt has c/o no pain this shift. Abdomen is tender to touch, no pain meds requested this shift. Pt was febrile x1 this shift, PRN tylenol administered per SEP. Upon reassessment, pt's fever has went away. No other acute changes or complaints, will continue to monitor.
[2021-08-27] VITALS (24 sets, daily range): BP systolic 102–160; BP diastolic 48–91; PULSE 60–86; RESP 14–20; TEMP 36.1–37.4; O2SAT 95–100; BMI 21.9
--- NOTE | 2021-08-27 05:48 | PC.NURSE ---
Pt has rested well this shift. Pt had voiced no c/o of pain this shift. Abdomen is firm and tender to touch. Pt has been ambulating independently in room. Pt has remained afebrile this shift. Call light within reach.
[2021-08-27 06:55] LABS: Chloride 104 mmol/L (98-107)
[2021-08-27 06:56] LABS: Potassium 3.5 mmoL/L (3.5-5.1); Sodium 135 mmol/L (136-145)
[2021-08-27 06:59] LABS: Anion Gap 8.5 mEq/L (5-15); Blood Urea Nitrogen 7 mg/dl (7-17); Calcium 7.6 mg/dl (8.4-10.2); Carbon Dioxide 26 mmol/L (22.0-30.0); Creatinine Clearance Estimated 112 mL/min (50-200); Estimated Glomerular Filt Rate 110 ml/min (>60); GFR (African American) 133 ML/MIN (>60); Glucose 97 mg/dl (74-100)
[2021-08-27 07:07] LABS: Basophils % 0.4 % (0.1-2.0); Eosinophils # 0.1 K/mm3 (0.0-0.4); Eosinophils % 1.1 % (0.1-12.0); Hematocrit 23.8 % (37.0-47.0); Hemoglobin 7.2 g/dL (12.2-16.2); Lymphocytes % 14.2 % (10-50); Mean Corpuscular Hemoglobin 20.2 pg (27.0-31.2); Mean Corpuscular Volume 67.3 fl (81-99); Monocytes # 0.5 K/mm3 (0.1-1.0); Monocytes % 6.2 % (1.7-9.3); Neutrophils # 5.7 K/mm3 (1.8-7.8); Neutrophils % 78.1 % (37.0-80.0); Platelet Count 140 K/mm3 (142-424); Red Blood Count 3.55 M/mm3 (4.20-5.40); Red Cell Distribution Width 24.6 % (11.5-17.5); White Blood Count 7.3 K/mm3 (4.8-10.8)
--- NOTE | 2021-08-27 09:18 | HMH.CONS ---
*Admission Date: 08/25/21 *Reason for consult:: medical mangement *History of present illness: 41-year-old female patient presents emergency room emergency department with reports of lower abdominal pain x4 days. She also has abdominal. She did have an elevated white count and a hemoglobin of 6.1. Urinalysis revealed 3+ leukocyte esterase, with a history of recurrent urinary tract infections. She does report a new sexual partner for the last few months after finding out her previous boyfriend of 5 years was having an affair. She does have a history of fibromyalgia and anxiety 08/25/21 Abd/Pelvic CT: FINDINGS: Abdomen: The lung bases are clear. The liver is normal in size and attenuation. The spleen is unremarkable. The adrenals are normal. The pancreas is unremarkable. The kidneys enhance appropriately. There is mild bilateral hydronephrosis. The aorta is normal in caliber. There is no free fluid or adenopathy. Pelvis: The appendix is normal. The urinary bladder is unremarkable. There is no free fluid or adenopathy. A large, midline pelvic mass is seen which appears to represent a diffusely enlarged uterus containing a large amount of heterogeneous debris. Uterus measures 14.7 cm in transverse dimension and 13.3 cm in AP dimension. IMPRESSION: Markedly enlarged uterus containing large amount of heterogeneous material. Neoplasia not excluded. Recommend gynecologic evaluation. Reviewed, Interpreted and Dictated by Александр Mckinnon MD 41-year-old female patient resting in bed quietly she does report continuing bilateral lower quadrant abdominal pain that is controlled with pain medicine. Abdomen is distended. Hemoglobin was 6.1 after 2 units packed red blood cells hemoglobin currently 7.9 [facility] History I have reviewed the patient's past medical history: Yes Medical History: Reports:: Anxiety, Depression, Hyperlipidemia, Hypertension, Valvular Heart Disease *Have you ever received a pneumonia vaccine?: No *Have you received a flu vaccine this season?: No Other Medical History: Reports: Anemia, Fibromyalgia Laterality Cases: Bilateral: Tonsillectomy Other Surgeries: Yes: Appendectomy, Amputation: No Fractures: No - *Social History Smoking Status: Current every day smoker # Packs/Day (cigarettes): 1 Alcohol Intake: current Alcohol Intake Frequency:: holidays/special occasions only Substance Use Type: marijuana *Occupational Status:: employed Household Members: spouse *Travel in the last 8 weeks: None - Psychiatric History Pschychiatric History:: Reports:: Anxiety, Depression Family Hx:: Cancer, Diabetes, Heart Attack, Hyperlipidemia, Hypertension Review of Systems - Review of Systems Review of systems:: pertinent systems reviewed and negative unless documented below - Constitutional Reports fatigue, Reports lack of energy, Denies body ache(s) - Eyes Denies blurry vision - ENT Denies bleeding gums - *Cardiovascular Denies chest pain at rest - *Respiratory Denies chest congestion - *Gastrointestinal Reports abdominal pain, Denies bloating - *Genitourinary Reports abnormal vaginal bleeding - *Musculoskeletal Denies joint pain - Integumentary/Breasts Denies bleeding lesions - *Neurologic Denies unsteadiness, Denies dizziness, Denies headache(s) - Psychiatric Denies abnormal sleep pattern - Endocrine Denies excessive sweating - Hematologic/Lymphatic Denies easy bruising - Allergic/Immunologic Denies GI upset with certain foods Meds Home Medications Medication Instructions Recorded Confirmed Type Escitalopram Oxalate 10 mg PO DAILY 08/25/21 08/25/21 History Gabapentin 600 mg PO TID 08/25/21 08/25/21 History Tramadol HCl [Tramadol 50mg 50 mg PO BID 08/25/21 08/25/21 History Tab] clonazePAM [Clonazepam] 0.5 mg PO TID 08/25/21 08/25/21 History Allergies Allergy/AdvReac Type Severity Reaction Status Date / Time No Known Allergies Allergy Verified 06/03
--- NOTE | 2021-08-27 10:00 | PC.NURSE ---
Spoke with PT and explained that she cannot vap in the hospital.
--- NOTE | 2021-08-27 10:19 | PC.NURSE ---
Spoke with colleen in lab about blood being ready
--- NOTE | 2021-08-27 10:59 | HMH.ACPN2 ---
Internal Medicine - PN: Subj *Date: 08/27/21 *Time: 09:10 Interval history: She is doing little better this morning. She still continues to have some lower abdominal pain. She has not had a fever for 24 hours. Her hemoglobin this morning is 7.2 so we are going to transfuse her 2 more units of blood. She still has Zosyn ordered for antibiotics. We are awaiting the culture and sensitivity on her urinalysis. We have transitioned her over to oral pain medicine. We will plan to send her home with some oral pain medicine. I have scheduled her for a hysterectomy for the middle of next week. Exam Vital signs and Labs for Last 24 Hours: Temp Pulse Resp BP Pulse Ox 98.5 F 70 16 108/67 L 100 08/27/21 07:59 08/27/21 07:59 08/27/21 07:59 08/27/21 07:59 08/27/21 07:59 Laboratory Results - last 24 hr 08/25/21 14:15: Urine Color Straw, Urine Appearance Clear, Urine pH 7.0, Ur Specific [place] 1.010, Urine Protein 1+, Urine Glucose (UA) Negative, Urine Ketones Negative, Urine Blood Trace-i, Urine Nitrate Negative, Urine Bilirubin Negative, Urine Urobilinogen 0.2, Ur Leukocyte Esterase 3+ A, Urine RBC Occasional, Urine WBC 20-50, Ur Squamous Epith Cells 5-10, Urine Bacteria 1+ 08/25/21 15:25: Blood Type B Negative, Antibody Screen Negative, Crossmatch (AHG) See Detail 08/26/21 09:45: Urine Color Yellow, Urine Appearance Clear, Urine pH 6.0, Ur Specific [place] 1.015, Urine Protein Trace, Urine Glucose (UA) Negative, Urine Ketones Trace, Urine Blood Negative, Urine Nitrate Negative, Urine Bilirubin Negative, Urine Urobilinogen 1.0, Ur Leukocyte Esterase 1+ A, Urine RBC Occasional, Urine WBC 20-50 A, Ur Squamous Epith Cells 10-20, Urine Bacteria 2+ A 08/27/21 05:40: Sodium 135 L, Potassium 3.5, Chloride 104, Carbon Dioxide 26, Anion Gap 8.5, BUN 7 D, Creatinine 0.60, Estimated Creat Clear 112, Estimated GFR 110, Est GFR ( Amer) 133, Glucose 97, Calcium 7.6 L 08/27/21 06:10: WBC 7.3, RBC 3.55 L, Hgb 7.2 L, Hct 23.8 L, MCV 67.3 L, MCH 20.2 L, MCHC 30.0 L, RDW 24.6 H, Plt Count 140 L, MPV 8.0, Neut % (Auto) 78.1, Lymph % (Auto) 14.2, [place] % (Auto) 6.2, Eos % (Auto) 1.1, Baso % (Auto) 0.4, Neut # (Auto) 5.7, Lymph # (Auto) 1.0, [place] # (Auto) 0.5, Eos # (Auto) 0.1, Baso # (Auto) 0.0 I & O for Last 24 hours: Intake & Output 08/24/21 08/25/21 08/26/21 08/27/21 11:59 11:59 11:59 11:59 Intake Total 500 / 500 1999 Output Total 115 / 115 Balance 385 / 385 1999 Weight 126 lb 12.8 oz 128 lb 6.4 oz Microbiology Reports for the Last 24 Hours: Microbiology 08/25/21 14:15 Urine,Clean Catch Urine Culture - Final Escherichia coli - Constitutional no acute distress - *Routine HEENT Exam Head: Present: normocephalic Eye: Present: EOMI, PERRL ENT: Present: mucous membranes moist - *Routine Abdominal Exam Present: soft, normoactive bowel sounds, tenderness Assessment and Plan (1) Uterine hypertrophy Status: Acute Category: Medical Code(s): N85.2 - Hypertrophy of uterus (2) Anemia Status: Acute Category: Medical Code(s): D64.9 - Anemia, unspecified (3) Endometritis Status: Acute Category: Medical Code(s): N71.9 - Inflammatory disease of uterus, unspecified (4) Sepsis Status: Acute Qualifiers: Sepsis type: sepsis due to unspecified organism Sepsis acute organ dysfunction status: unspecified Qualified Code(s): A41.9 - Sepsis, unspecified organism Category: Medical Code(s): A41.9 - Sepsis, unspecified organism (5) UTI (urinary tract infection) Status: Acute Qualifiers: Urinary tract infection type: acute cystitis Hematuria presence: with hematuria Qualified Code(s): N30.01 - Acute cystitis with hematuria Category: Medical Code(s): N39.0 - Urinary tract infection, site not specified - Assessment and plan all Dx Assessment and Plan for all problems:: We will plan to transfuse her 2 units of blood today.
--- NOTE | 2021-08-27 12:03 | PC.NURSE ---
late entry. patient hager was removed on 08/26/21. patient noted to have less output than originally suspected.
[2021-08-27 12:16] LABS: Hep A Ab, IgM Negative (Negative); Hepatitis B Core Antibody IgM Negative (Negative); Hepatitis B Surface Antigen Negative (Negative); Hepatitis C Antibody <0.1 s/co ratio (0.0-0.9)
--- NOTE | 2021-08-27 17:41 | PC.NURSE ---
Dr. Whittington came in this evening and seen pt and ordered a cbc for 0600 tomorrow and this would be counted as her post H&H. Pt has been educated multiple times that there is no vaping allowed in hospital. Will lock in drawer.
--- NOTE | 2021-08-27 19:15 | PC.NURSE ---
Pt refuses to lock her vape up and states she will send home with Naren. EMILIO Lambert aware of this.
[2021-08-28 04:00] VITALS: BP 130/74; PULSE 68; RESP 18; TEMP 37.1; O2SAT 98
[2021-08-28 06:24] LABS: Basophils % 0.2 % (0.1-2.0); Eosinophils # 0.1 K/mm3 (0.0-0.4); Hematocrit 31.7 % (37.0-47.0); Lymphocytes # 0.9 K/mm3 (0.7-4.5); Lymphocytes % 10.9 % (10-50); Mean Corpuscular HGB Conc 29.8 g/dL (31.8-35.4); Mean Corpuscular Hemoglobin 22.1 pg (27.0-31.2); Mean Platelet Volume 7.8 fl (7.4-10.4); Monocytes # 0.5 K/mm3 (0.1-1.0); Monocytes % 6.2 % (1.7-9.3); Neutrophils # 6.5 K/mm3 (1.8-7.8); Neutrophils % 81.6 % (37.0-80.0); Platelet Count 137 K/mm3 (142-424); Red Blood Count 4.29 M/mm3 (4.20-5.40)
[2021-08-28 06:26] LABS: Chloride 103 mmol/L (98-107)
[2021-08-28 06:27] LABS: Potassium 3.7 mmoL/L (3.5-5.1); Sodium 137 mmol/L (136-145)
[2021-08-28 06:29] LABS: Blood Urea Nitrogen 8 mg/dl (7-17); Creatinine Clearance Estimated 112 mL/min (50-200); Estimated Glomerular Filt Rate 110 ml/min (>60); GFR (African American) 133 ML/MIN (>60)
[2021-08-28 06:30] LABS: Anion Gap 10.7 mEq/L (5-15); Carbon Dioxide 27 mmol/L (22.0-30.0); Glucose 107 mg/dl (74-100)
[2021-08-28 06:54] LABS: Hemoglobin 9.5 g/dL (12.2-16.2)
[2021-08-28 08:00] VITALS: BP 147/71; PULSE 56; RESP 17; TEMP 36.6; O2SAT 98
--- NOTE | 2021-08-28 09:04 | HMH.CONFU ---
Internal Medicine - PN: Subj *Date: 08/28/21 *Time: 17:14 Interval history: 41-year-old female patient sitting up in bed, sister Sandy in room. Patient reports ongoing bilateral lower quadrant abdominal pain she reports it is no worse than it was yesterday but is still remaining the same. She denies any new concerns/needs Exam Vital signs and Labs for Last 24 Hours: Temp Pulse Resp BP Pulse Ox 98.8 F 68 18 130/74 98 08/28/21 04:00 08/28/21 04:00 08/28/21 04:00 08/28/21 04:00 08/28/21 04:00 Laboratory Results - last 24 hr 08/25/21 15:25: Blood Type B Negative, Antibody Screen Negative, Crossmatch (AHG) See Detail 08/26/21 04:35: Hepatitis A IgM Ab Negative, Hep Bs Antigen Negative, Hep B Core IgM Ab Negative, Hepatitis C Antibody <0.1 08/28/21 05:51: WBC 8.0, RBC 4.29, Hgb 9.5 L D, Hct 31.7 L, MCV 74.0 L, MCH 22.1 L, MCHC 29.8 L, RDW 22.0 H, Plt Count 137 L, MPV 7.8, Neut % (Auto) 81.6 H, Lymph % (Auto) 10.9, [place] % (Auto) 6.2, Eos % (Auto) 1.0, Baso % (Auto) 0.2, Neut # (Auto) 6.5, Lymph # (Auto) 0.9, [place] # (Auto) 0.5, Eos # (Auto) 0.1, Baso # (Auto) 0.0 08/28/21 05:51: Sodium 137, Potassium 3.7, Chloride 103, Carbon Dioxide 27, Anion Gap 10.7, BUN 8, Creatinine 0.60, Estimated Creat Clear 112, Estimated GFR 110, Est GFR ( Amer) 133, Glucose 107 H, Calcium 8.0 L I & O for Last 24 hours: Intake & Output 08/25/21 08/26/21 08/27/21 08/28/21 23:59 23:59 23:59 23:59 Intake Total 0 / 0 2260 / 2260 1090 / 1985 1015 / 1015 Output Total 115 / 115 Balance 0 / 0 2145 / 2145 1089 1015 / 1015 Weight 126 lb 126 lb 12.8 oz 128 lb 6.4 oz Microbiology Reports for the Last 24 Hours: Microbiology 08/25/21 14:15 Blood Blood Culture - Preliminary NO GROWTH AFTER 48 HOURS 08/25/21 14:15 Blood Blood Culture - Preliminary NO GROWTH AFTER 48 HOURS 08/26/21 09:45 Urine,Catheterized Urine Culture - Preliminary NO GROWTH AFTER 24 HOURS 08/25/21 14:15 Urine,Clean Catch Urine Culture - Final Escherichia coli - Constitutional no acute distress - *Routine HEENT Exam Head: Present: normocephalic Eye: Present: EOMI ENT: Present: mucous membranes moist - *Routine Neck Exam Present: trachea midline. Absent: tracheal deviation - *Routine Respiratory Exam Present: CTA bilaterally. Absent: accessory muscle use - *Routine Cardiovascular Exam Present: RRR - *Routine Abdominal Exam Present: soft, normoactive bowel sounds, tenderness, distended - *Routine Extremities Exam Present: full ROM, pulses intact. Absent: cyanosis, clubbing - *Routine Skin Exam Present: intact, dry. Absent: cyanosis, erythema - *Routine Neurological Exam Present: alert, oriented X3. Absent: motor deficit - Routine Psychiatric Exam Present: normal affect, normal thought process. Absent: auditory hallucinations Assessment and Plan (1) Uterine hypertrophy Status: Acute Category: Medical Code(s): N85.2 - Hypertrophy of uterus (2) Anemia Status: Acute Category: Medical Code(s): D64.9 - Anemia, unspecified (3) Endometritis Status: Acute Category: Medical Code(s): N71.9 - Inflammatory disease of uterus, unspecified (4) Sepsis Status: Acute Qualifiers: Sepsis type: sepsis due to unspecified organism Sepsis acute organ dysfunction status: unspecified Qualified Code(s): A41.9 - Sepsis, unspecified organism Category: Medical Code(s): A41.9 - Sepsis, unspecified organism (5) UTI (urinary tract infection) Status: Acute Qualifiers: Urinary tract infection type: acute cystitis Hematuria presence: with hematuria Qualified Code(s): N30.01 - Acute cystitis with hematuria Category: Medical Code(s): N39.0 - Urinary tract infection, site not specified - Assessment and plan all Dx Assessment and Plan for all problems:: Rounded with
--- NOTE | 2021-08-28 11:04 | PC.NURSE ---
Dr. Garces assessed patient and determined the patient will be discharged today. This nurse asked Dr. Garces if we still needed to do another ct with and without contrast and Dr. Guerra said test was not needed, she already had a ct and ultrasound while here and has a hysterectomy and fibroid removal for wednesday.
--- NOTE | 2021-08-28 11:14 | HMH.ITSTN ---
I CALLED AND SPOKE WITH NURSE ABOUT THIS PATIENT. SHE SPOKE WITH DR STEWARD TO FIND OUT IF THIS WAS IV AND ORAL OR ONLY IV. PER DR STEWARD, NO SCAN, PATIENT DOES NOT NEED THE SCAN BECAUSE HER PAIN IS RELATED TO FIBROID
--- NOTE | 2021-08-28 12:38 | HMH.ACPN2 ---
Internal Medicine - PN: Subj *Date: 08/28/21 *Time: 12:38 Interval history: She continues to have severe lower abdominal pain. She is taking narcotics. Her hemoglobin has stabilized after getting 2 more units of blood. It is now 9.6. We will plan to perform a hysterectomy for her tomorrow since she has severe pain. We discussed the risks of surgery that includes bleeding, infection, injuries to adjacent structures. We discussed the rare risk of injury to the ureter. We discussed the rare risk of DVT and the need for DVT prophylaxis. We will do a total abdominal hysterectomy and bilateral salpingectomy. All questions were answered and consents were signed. Exam Vital signs and Labs for Last 24 Hours: Temp Pulse Resp BP Pulse Ox 97.8 F 56 L 17 147/71 H 98 08/28/21 08:00 08/28/21 08:00 08/28/21 08:00 08/28/21 08:00 08/28/21 08:00 Laboratory Results - last 24 hr 08/25/21 15:25: Blood Type B Negative, Antibody Screen Negative, Crossmatch (AHG) See Detail 08/28/21 05:51: WBC 8.0, RBC 4.29, Hgb 9.5 L D, Hct 31.7 L, MCV 74.0 L, MCH 22.1 L, MCHC 29.8 L, RDW 22.0 H, Plt Count 137 L, MPV 7.8, Neut % (Auto) 81.6 H, Lymph % (Auto) 10.9, Nelson % (Auto) 6.2, Eos % (Auto) 1.0, Baso % (Auto) 0.2, Neut # (Auto) 6.5, Lymph # (Auto) 0.9, [place] # (Auto) 0.5, Eos # (Auto) 0.1, Baso # (Auto) 0.0 08/28/21 05:51: Sodium 137, Potassium 3.7, Chloride 103, Carbon Dioxide 27, Anion Gap 10.7, BUN 8, Creatinine 0.60, Estimated Creat Clear 112, Estimated GFR 110, Est GFR ( Amer) 133, Glucose 107 H, Calcium 8.0 L I & O for Last 24 hours: Intake & Output 02/22/22 02/23/22 02/24/22 02/25/22 11:59 11:59 11:59 11:59 Intake Total 500 / 500 1999 Output Total 115 / 115 0 / 0 Balance 385 / 385 1999 Weight 126 lb 12.8 oz 128 lb 6.4 oz Microbiology Reports for the Last 24 Hours: Microbiology 08/26/21 09:45 Urine,Catheterized Urine Culture - Final NO GROWTH AFTER 48 HOURS 08/25/21 14:15 Blood Blood Culture - Preliminary NO GROWTH AFTER 48 HOURS 08/25/21 14:15 Blood Blood Culture - Preliminary NO GROWTH AFTER 48 HOURS 08/25/21 14:15 Urine,Clean Catch Urine Culture - Final Escherichia coli - Constitutional no acute distress - *Routine HEENT Exam Head: Present: normocephalic Eye: Present: EOMI, PERRL ENT: Present: mucous membranes moist Assessment and Plan (1) Uterine hypertrophy Status: Acute Category: Medical Code(s): N85.2 - Hypertrophy of uterus (2) Anemia Status: Acute Category: Medical Code(s): D64.9 - Anemia, unspecified (3) Endometritis Status: Acute Category: Medical Code(s): N71.9 - Inflammatory disease of uterus, unspecified (4) Sepsis Status: Acute Qualifiers: Sepsis type: sepsis due to unspecified organism Sepsis acute organ dysfunction status: unspecified Qualified Code(s): A41.9 - Sepsis, unspecified organism Category: Medical Code(s): A41.9 - Sepsis, unspecified organism (5) UTI (urinary tract infection) Status: Acute Qualifiers: Urinary tract infection type: acute cystitis Hematuria presence: with hematuria Qualified Code(s): N30.01 - Acute cystitis with hematuria Category: Medical Code(s): N39.0 - Urinary tract infection, site not specified (6) Uterine fibroid Status: Acute Category: Medical Code(s): D25.9 - Leiomyoma of uterus, unspecified - Assessment and plan all Dx Assessment and Plan for all problems:: We have scheduled her for a total abdominal hysterectomy and bilateral salpingectomy tomorrow. We will do a midline incision. We will keep her n.p.o. after midnight. We will also get an EKG prior to her surgery.
--- NOTE | 2021-08-28 14:37 | ECG_ITS ---
APPROVED REPORT Exam: Resting ECG HR:64 bpm ECG Measurements Heart Rate 64 AXES AR 158 P 34 QRSd 75 QRS 50 QT 412 T 39 QTc 421 Conclusion SINUS RHYTHM NORMAL ECG UNCONFIRMED REPORT Electronically signed by : Sanchez Griffin MD 08/29/2021 19:21:42
[2021-08-28 20:00] VITALS: BP 119/59; PULSE 61; RESP 18; TEMP 36.5; O2SAT 98
--- NOTE | 2021-08-28 21:50 | PC.NURSE ---
late entry: Pt arrived to floor at 2039 via wheelchair to room 279, report received from Fabian JHAVERI
--- NOTE | 2021-08-28 21:52 | PC.NURSE ---
late entry: 2058 pt notably drowsy during medication administration. Pt rates her pain 8/10 and requested morphine be given. Pt drifted off and began snoring during conversation. Educated pt on scheduled klonipin and gabapentin in conjuction with morphine and it was mutually agreed that lortab would be appropriate at this time. Will reassess pts pain level.
[2021-08-29] VITALS (42 sets, daily range): BP systolic 73–171; BP diastolic 37–93; PULSE 58–95; RESP 10–18; TEMP 36.3–43; O2SAT 91–100
--- NOTE | 2021-08-29 04:04 | PC.NURSE ---
PT HAS BEEN SLEEPING. VITAL SIGNS REMAIN STABLE. CONSENT FORMED SIGNED. WILL CONTINUE TO MONITOR.
--- NOTE | 2021-08-29 06:40 | PC.NURSE ---
0635: Spoke with Dr Whittington regarding pre op antibiotic. states pt's scheduled zosyn should be adequate and does not wish to order any other antibiotics at this time. 06:40 Report given to Ivory JHAVERI. Pt off floor at this time.
--- NOTE | 2021-08-29 06:42 | PC.NURSE ---
All charting and care by Arjun marketing researcher, this shift, supervised by this RN.
[2021-08-29 06:57] LABS: Basophils % 0.2 % (0.1-2.0); Eosinophils # 0.1 K/mm3 (0.0-0.4); Eosinophils % 1.6 % (0.1-12.0); Hematocrit 33.9 % (37.0-47.0); Hemoglobin 10.1 g/dL (12.2-16.2); Lymphocytes # 1.1 K/mm3 (0.7-4.5); Lymphocytes % 17.3 % (10-50); Mean Corpuscular HGB Conc 29.8 g/dL (31.8-35.4); Mean Corpuscular Hemoglobin 22.3 pg (27.0-31.2); Mean Corpuscular Volume 74.7 fl (81-99); Mean Platelet Volume 8.3 fl (7.4-10.4); Monocytes # 0.5 K/mm3 (0.1-1.0); Neutrophils # 4.7 K/mm3 (1.8-7.8); Neutrophils % 73.9 % (37.0-80.0); Platelet Count 143 K/mm3 (142-424); Red Blood Count 4.54 M/mm3 (4.20-5.40); Red Cell Distribution Width 22.5 % (11.5-17.5); White Blood Count 6.4 K/mm3 (4.8-10.8)
[2021-08-29 07:00] LABS: Chloride 101 mmol/L (98-107); Sodium 136 mmol/L (136-145)
[2021-08-29 07:01] LABS: Potassium 3.8 mmoL/L (3.5-5.1)
[2021-08-29 07:03] LABS: Blood Urea Nitrogen 4 mg/dl (7-17); Creatinine Clearance Estimated 112 mL/min (50-200); Estimated Glomerular Filt Rate 110 ml/min (>60); GFR (African American) 133 ML/MIN (>60)
--- NOTE | 2021-08-29 07:03 | HMH.ANESCL ---
[facility] Anesthesia Checklist - Patient Identification Patient Identification: Arm Band - Structural Data Admitted From: Home Planned Operative Procedure/s: [facility] Consent for Planned Operative Procedure(s) Verified: Yes - NPO Status Verified Time NPO: 00:00 - Cardiovascular Assessment Heart Sounds: Murmur - Airway Assessment C-Spine Mobility Assessed: Yes TMJ Mobility Assessed: Yes Dentition: Good Dentition - Neurological Assessment Level of Consciousness: Awake Hx Seizures: No Numbness or tingling in extremities: No - Anesthesia Plan Anesthesia Risk discussed: Yes Anesthesia Plan: Verified ASA Class: II Anesthesia Type: General [facility] History I have reviewed the patient's past medical history: Yes Medical History: Reports:: Anxiety, Depression, Hyperlipidemia, Hypertension, Valvular Heart Disease *Have you ever received a pneumonia vaccine?: No *Have you received a flu vaccine this season?: No Other Medical History: Reports: Anemia, Fibromyalgia Anesthesia experience/problems:: None Laterality Cases: Bilateral: Tonsillectomy Other Surgeries: Yes: Appendectomy, Amputation: No Fractures: No - *Social History Smoking Status: Current every day smoker # Packs/Day (cigarettes): 1 Alcohol Intake: current Alcohol Intake Frequency:: holidays/special occasions only Substance Use Type: marijuana *Occupational Status:: employed Household Members: spouse *Travel in the last 8 weeks: None - Psychiatric History Pschychiatric History:: Reports:: Anxiety, Depression Family Hx:: Cancer, Diabetes, Heart Attack, Hyperlipidemia, Hypertension
[2021-08-29 07:04] LABS: Anion Gap 10.8 mEq/L (5-15); Calcium 8.2 mg/dl (8.4-10.2); Carbon Dioxide 28 mmol/L (22.0-30.0); Glucose 86 mg/dl (74-100)
--- NOTE | 2021-08-29 08:54 | HMH.ACPN ---
Internal Medicine - PN: Subj *Date: 08/29/21 *Time: 08:54 Exam Vital signs and Labs for Last 24 Hours: Temp Pulse Resp BP Pulse Ox 98.7 F 78 17 132/70 100 08/29/21 04:00 08/29/21 04:00 08/29/21 04:00 08/29/21 04:00 08/29/21 04:00 Laboratory Results - last 24 hr 08/28/21 13:10: Blood Type B Negative, Antibody Screen Negative, Crossmatch (AHG) See Detail 08/29/21 05:12: WBC 6.4, RBC 4.54, Hgb 10.1 L, Hct 33.9 L, MCV 74.7 L, MCH 22.3 L, MCHC 29.8 L, RDW 22.5 H, Plt Count 143, MPV 8.3, Neut % (Auto) 73.9, Lymph % (Auto) 17.3, [place] % (Auto) 7.0, Eos % (Auto) 1.6, Baso % (Auto) 0.2, Neut # (Auto) 4.7, Lymph # (Auto) 1.1, [place] # (Auto) 0.5, Eos # (Auto) 0.1, Baso # (Auto) 0.0 08/29/21 05:12: Sodium 136, Potassium 3.8, Chloride 101, Carbon Dioxide 28, Anion Gap 10.8, BUN 4 L D, Creatinine 0.60, Estimated Creat Clear 112, Estimated GFR 110, Est GFR ( Amer) 133, Glucose 86, Calcium 8.2 L I & O for Last 24 hours: Intake & Output 08/26/21 08/27/21 08/28/21 08/29/21 23:59 23:59 23:59 23:59 Intake Total 2260 / 2260 1089 1375 / 1375 Output Total 115 / 115 0 / 0 Balance 2145 / 2145 1089 / 1984 1375 / 1375 Weight 57.516 kg 58.241 kg Microbiology Reports for the Last 24 Hours: Microbiology 08/26/21 09:45 Urine,Catheterized Urine Culture - Final NO GROWTH AFTER 48 HOURS Assessment and Plan (1) Uterine hypertrophy Status: Acute Category: Medical Code(s): N85.2 - Hypertrophy of uterus (2) Anemia Status: Acute Category: Medical Code(s): D64.9 - Anemia, unspecified (3) Endometritis Status: Acute Category: Medical Code(s): N71.9 - Inflammatory disease of uterus, unspecified (4) Sepsis Status: Acute Qualifiers: Sepsis type: sepsis due to unspecified organism Sepsis acute organ dysfunction status: unspecified Qualified Code(s): A41.9 - Sepsis, unspecified organism Category: Medical Code(s): A41.9 - Sepsis, unspecified organism (5) UTI (urinary tract infection) Status: Acute Qualifiers: Urinary tract infection type: acute cystitis Hematuria presence: with hematuria Qualified Code(s): N30.01 - Acute cystitis with hematuria Category: Medical Code(s): N39.0 - Urinary tract infection, site not specified The patient's infection will respond to the chosen ABx?: Yes Is the patient receiving the right drug, dose, and route?: Yes Could a more targeted ABx be ordered?: No (E. COLI SENSITIVE TO ZOSYN)
--- NOTE | 2021-08-29 09:08 | P.PN_ITS ---
[facility] Anesthesia Record Part I Intake, IV Amount: 1,000 Estimated blood loss (mL): 300 Urine output (mL): 100 Blood Pressure: 127/76 SaO2: 91 Pulse Rate: 65 Respiratory Rate: 16 Temperature: 97.3 F Patient is:: Drowsy, Oral/Nasal airway Stable to PACU at:: 09:07
--- NOTE | 2021-08-29 09:08 | HMH.OPNOTE ---
Date of procedure: 08/29/21 Pre-op Diagnosis:: Fibroid uterus, anemia, pelvic pain Post-op Diagnosis:: Fibroid uterus, pelvic pain, anemia Procedure performed:: Total abdominal hysterectomy, bilateral salpingectomy Surgeon:: Ben Whittington MD Supplier Development Manager(s):: Lisbet Sandoval SLAB LIFTING SUPERVISOR:: Destiny Montoya Anesthesia: GETA Estimated blood loss (mL): 300 Clinical Note:: She is a 41-year-old 3 para 3 lady who complains of lower abdominal pain. She says that her periods have been somewhat heavy. She also complained of swelling in her lower belly. Ultrasound and CT scan confirmed a large fibroid uterus. The fibroid was approximately 17 cm in size. She is slim and she looked about 18 weeks . She also had a hemoglobin of 6.0 when she came in with a extremely low MCV consistent with chronic anemia. After having discussed the risk and benefits we elected perform a total abdominal hysterectomy and bilateral salpingectomy. Operative findings:: She had an enlarged uterus approximately 16 weeks size. Ovaries and tubes appeared normal. She is had a previous tubal ligation. The rest of the pelvis appeared normal. Operative note:: She was taken the operating room where general anesthesia was found be adequate. She was prepped and draped normal sterile fashion in the supine position. A Verma catheter was in the bladder. A midline incision was made from pubic hairline to the umbilicus. This was carried through to the underlying layer of fascia with cautery. The fascia was opened midline with cautery and extended superiorly and inferiorly. The posterior fascia and peritoneum was then opened up in the midline and extended superiorly and inferiorly with cautery. There was good visualization of the bladder. We then packed away the bowel and inserted a O'Lester-O'Weiner self-retaining retractor. The uterus was exteriorized from the abdominal cavity. I then grasped the left round ligament clamped cut and suture-ligated this. This was followed by opening of the anterior peritoneum to the midline. I then clamped across the utero-ovarian ligament this was cut and doubly suture-ligated. I then grasped the left tube and remove this using cautery. The uterine arteries were then skeletonized on the left side. The uterine arteries were then clamped with curved Esequiel clamp cut and suture-ligated. I then took down the cardinal ligament on the left side using straight Esequiel clamps which were individually placed clamped cut and suture-ligated. I then turned my attention to the right side of the uterus. The round ligament on the right side was clamped cut and suture-ligated. This was followed by opening up the bladder peritoneum to the midline. We then clamped across the utero-ovarian ligament which was cut and doubly suture-ligated. I then grasped the right tube and using cautery cauterize along the mesosalpinx removing the entire right tube. I then skeletonized the right uterine artery and using a curved Esequiel clamp I clamp across this. This was cut and suture-ligated. I then took down the cardinal ligaments on the right side using straight Esequiel clamps I clamped cut and suture-ligated these. I was then far enough down that I was able to amputate the uterus from the cervix. This freed up the space and I was able to easily remove the cervix after this. The cervical stump was grasped with a Palak clamp and using straight Esequiel clamps I took down the rest of the right cardinal ligament and uterosacral ligaments in a [id number] fashion clamping cutting and suture ligating as I went. This was similar performed on the left side. I then clamped across the top of the vagina bilaterally with curved Esequiel clamps and amputated the cervix from the top of the vagina. I then suture-ligated the vaginal fornices. Using 0 Vicryl suture in a running locked fashion I closed the vaginal mucosa. After assuring hemostasis I then elected to close the pe
--- NOTE | 2021-08-29 10:00 | PC.NURSE ---
Report received from Anne HURST RN
--- NOTE | 2021-08-29 10:15 | PC.NURSE ---
Pt. to room 279 via bed and surgery staff x2. Pt. reports pain at 10/10. PACU staff reports pt. had pain medication prior to moving out of PACU. Nurse v/u and will review orders.
--- NOTE | 2021-08-29 10:34 | SUR.PHASEI ---
0957 Prior to transport pt was sleeping comfortably. Pt aroused upon disconnecting from monitors and stated that pain is unrelieved. EZRA Wiggins is aware. See eMar for medication administration. Vital signs stable. Hospital staff at bedside in patient room. Detailed report provided to EMILIO Parrish.
--- NOTE | 2021-08-29 13:45 | PC.NURSE ---
Dr. Whittington in room. Report given to regarding Pt. ABD being distended, BP at 98/48, HR at 74. Pt. resting well, but reports pain at 10/10. v/u. Orders received to draw H/H now instead of 15:00, then redraw H/H again at 18:00. Order read back and verified.
--- NOTE | 2021-08-29 13:48 | HMH.ACPN2 ---
Internal Medicine - PN: Subj *Date: 08/29/21 *Time: 13:48 Interval history: She seems to be doing well. Her blood pressure is slightly low but she has been receiving IV Dilaudid. Her heart rate is in the normal range at 72. She continues to put out good urine. Since her surgery she is put out almost 500 cc of urine. It has been about 4 hours since her surgery ended. She does look a little pale but her hemoglobin prior to surgery was only 9.6. Her belly is slightly distended but there are good bowel sounds. Exam Vital signs and Labs for Last 24 Hours: Temp Pulse Resp BP Pulse Ox 97.8 F 78 16 98/58 L 97 08/29/21 12:30 08/29/21 12:30 08/29/21 12:30 08/29/21 12:30 08/29/21 12:30 Laboratory Results - last 24 hr 08/28/21 13:10: Blood Type B Negative, Antibody Screen Negative, Crossmatch (AHG) See Detail 08/29/21 05:12: WBC 6.4, RBC 4.54, Hgb 10.1 L, Hct 33.9 L, MCV 74.7 L, MCH 22.3 L, MCHC 29.8 L, RDW 22.5 H, Plt Count 143, MPV 8.3, Neut % (Auto) 73.9, Lymph % (Auto) 17.3, [place] % (Auto) 7.0, Eos % (Auto) 1.6, Baso % (Auto) 0.2, Neut # (Auto) 4.7, Lymph # (Auto) 1.1, [place] # (Auto) 0.5, Eos # (Auto) 0.1, Baso # (Auto) 0.0 08/29/21 05:12: Sodium 136, Potassium 3.8, Chloride 101, Carbon Dioxide 28, Anion Gap 10.8, BUN 4 L D, Creatinine 0.60, Estimated Creat Clear 112, Estimated GFR 110, Est GFR ( Amer) 133, Glucose 86, Calcium 8.2 L I & O for Last 24 hours: Intake & Output 08/27/21 08/28/21 08/29/21 08/30/21 11:59 11:59 11:59 11:59 Intake Total 1999 1865 / 1865 1360 / 1360 Output Total 0 / 0 Balance 1999 1865 / 1865 1360 / 1360 Weight 128 lb 6.4 oz Microbiology Reports for the Last 24 Hours: Microbiology 08/26/21 09:45 Urine,Catheterized Urine Culture - Final NO GROWTH AFTER 48 HOURS - Constitutional no acute distress - *Routine Abdominal Exam Present: soft, normoactive bowel sounds, tenderness. Absent: rebound Comments: Her incision is clean and dry. Assessment and Plan (1) Uterine hypertrophy Status: Acute Category: Medical Code(s): N85.2 - Hypertrophy of uterus (2) Anemia Status: Acute Category: Medical Code(s): D64.9 - Anemia, unspecified (3) Endometritis Status: Acute Category: Medical Code(s): N71.9 - Inflammatory disease of uterus, unspecified (4) Sepsis Status: Acute Qualifiers: Sepsis type: sepsis due to unspecified organism Sepsis acute organ dysfunction status: unspecified Qualified Code(s): A41.9 - Sepsis, unspecified organism Category: Medical Code(s): A41.9 - Sepsis, unspecified organism (5) UTI (urinary tract infection) Status: Acute Qualifiers: Urinary tract infection type: acute cystitis Hematuria presence: with hematuria Qualified Code(s): N30.01 - Acute cystitis with hematuria Category: Medical Code(s): N39.0 - Urinary tract infection, site not specified (6) Uterine fibroid Status: Acute Category: Medical Code(s): D25.9 - Leiomyoma of uterus, unspecified - Assessment and plan all Dx Assessment and Plan for all problems:: She is doing well post surgery. Her heart rate is normal. Her urine output has been good. Her blood pressure is slightly low at 98/58. She is otherwise doing well. Her pain is reasonably well controlled with Dilaudid. She also had a tap block. We will get an H&H now instead of waiting until 3 PM.
[2021-08-29 14:46] LABS: Hematocrit 24.8 % (37.0-47.0)
[2021-08-29 15:14] LABS: Hemoglobin 7.4 g/dL (12.2-16.2)
--- NOTE | 2021-08-29 15:15 | PC.NURSE ---
called to for update on pt. condition and H/H. Report given. ABD remains distended. pt. remains pale in color. BP at 120/60 HR at 71, F/C bag remains with approximately 500ml in bag, H/H AT 7.4/24.8. v/u. No orders received.
[2021-08-29 15:42] LABS: Microscopic,Cath URINE MICROSCOPIC (MICROSCOPIC)
[2021-08-29 16:08] LABS: Appearance,Urine/Cath CLEAR (Clear); Bilirubin,Cath Negative (Negative); Blood, Urine/Cath Negative (Negative); Color,Urine/Cath YELLOW (Yellow); Glucose,Urine/Cath (UA) Negative (Negative); Ketones,Urine/Cath Negative (Negative); Leukocyte Esterase,Cath Negative (Negative); Nitrate,Cath Negative (Negative); PH,Urine/Cath 6.5 (5.0-8.5); Protein,Urine/Cath Negative (Negative); Urobilinogen,Cath 0.2 EU/dl (0.2)
--- NOTE | 2021-08-29 16:45 | PC.NURSE ---
Addendum entered by Michelle Barrios RN 08/29/21 19:32: Nurse reported to MD ABD remains distended and pt. remains pale. BP at 103/40. HR at 80BPM. Urine remains around 500ml in F/C bag. v/u. reports ABD is distended but soft to palpation. No new orders received. Awaiting blood draw at 18:00. Original Note: Dr. Whittington in room.
--- NOTE | 2021-08-29 17:00 | PC.NURSE ---
Routine reassessment completed. VSS Midline incision with T&T Remains with small amount of serosangiuneous drainaged. ABD remains distended and tender, but is soft. Pt. has had 500ml out of catheter, urine remains clear light yellow in tube. Pt. reports pain at 10/10 in ABD, see EMAR for medications given. Pt. does appear pale. Pt. more awake and easier to awaken than earlier. No further acute changes from previous assessment. Pt. denies needs, will continue to monitor.
--- NOTE | 2021-08-29 17:41 | HMH.CONFU ---
Internal Medicine - PN: Subj *Date: 08/29/21 *Time: 11:41 Interval history: 41-year-old female patient resting in bed quietly post surgical procedure with midline abdominal dressing clean dry and intact. Abdomen is distended patient is lethargic and reports pain is under control Exam Vital signs and Labs for Last 24 Hours: Temp Pulse Resp BP Pulse Ox 98.4 F 80 16 103/40 L 97 08/29/21 17:00 08/29/21 17:00 08/29/21 17:00 08/29/21 17:00 08/29/21 17:00 Laboratory Results - last 24 hr 08/28/21 13:10: Blood Type B Negative, Antibody Screen Negative, Crossmatch (AHG) See Detail 08/29/21 05:12: WBC 6.4, RBC 4.54, Hgb 10.1 L, Hct 33.9 L, MCV 74.7 L, MCH 22.3 L, MCHC 29.8 L, RDW 22.5 H, Plt Count 143, MPV 8.3, Neut % (Auto) 73.9, Lymph % (Auto) 17.3, [place] % (Auto) 7.0, Eos % (Auto) 1.6, Baso % (Auto) 0.2, Neut # (Auto) 4.7, Lymph # (Auto) 1.1, [place] # (Auto) 0.5, Eos # (Auto) 0.1, Baso # (Auto) 0.0 08/29/21 05:12: Sodium 136, Potassium 3.8, Chloride 101, Carbon Dioxide 28, Anion Gap 10.8, BUN 4 L D, Creatinine 0.60, Estimated Creat Clear 112, Estimated GFR 110, Est GFR ( Amer) 133, Glucose 86, Calcium 8.2 L 08/29/21 07:25: Urine Color Yellow, Urine Appearance Clear, Urine pH 6.5, Ur Specific [place] 1.010, Urine Protein Negative, Urine Glucose (UA) Negative, Urine Ketones Negative, Urine Blood Negative, Urine Nitrate Negative, Urine Bilirubin Negative, Urine Urobilinogen 0.2, Ur Leukocyte Esterase Negative 08/29/21 13:56: Hgb 7.4 L D, Hct 24.8 L I & O for Last 24 hours: Intake & Output 08/26/21 08/27/21 08/28/2125/22 23:59 23:59 23:59 23:59 Intake Total 2260 / 2260 1089 1375 / 1375 1000 / 1000 Output Total 115 / 115 0 / 0 500 / 500 Balance 2145 / 2145 1089 / 1984 1375 / 1375 500 / 500 Weight 126 lb 12.8 oz 128 lb 6.4 oz - Constitutional no acute distress - *Routine HEENT Exam Head: Present: normocephalic Eye: Present: EOMI ENT: Present: mucous membranes moist - *Routine Neck Exam Present: trachea midline. Absent: tracheal deviation - *Routine Respiratory Exam Present: CTA bilaterally. Absent: accessory muscle use - *Routine Cardiovascular Exam Present: RRR - *Routine Abdominal Exam Present: tenderness, distended. Absent: normoactive bowel sounds - *Routine Extremities Exam Present: full ROM, pulses intact. Absent: cyanosis, clubbing - *Routine Skin Exam Present: dry, wounds. Absent: intact, cyanosis, erythema Comments: Midline abdominal incision dressing clean/dry/intact - *Routine Neurological Exam Present: alert, altered mental status - Routine Psychiatric Exam Present: unable to assess Assessment and Plan (1) Uterine hypertrophy Status: Acute Category: Medical Code(s): N85.2 - Hypertrophy of uterus (2) Anemia Status: Acute Category: Medical Code(s): D64.9 - Anemia, unspecified (3) Endometritis Status: Acute Category: Medical Code(s): N71.9 - Inflammatory disease of uterus, unspecified (4) Sepsis Status: Acute Qualifiers: Sepsis type: sepsis due to unspecified organism Sepsis acute organ dysfunction status: unspecified Qualified Code(s): A41.9 - Sepsis, unspecified organism Category: Medical Code(s): A41.9 - Sepsis, unspecified organism (5) UTI (urinary tract infection) Status: Acute Qualifiers: Urinary tract infection type: acute cystitis Hematuria presence: with hematuria Qualified Code(s): N30.01 - Acute cystitis with hematuria Category: Medical Code(s): N39.0 - Urinary tract infection, site not specified (6) Uterine fibroid Status: Acute Category: Medical Code(s): D25.9 - Leiomyoma of uterus, unspecified - Assessment and plan all Dx Assessment and Plan for all problems:: Rounded with Dr. Dorothea, all orders per Dr. Piedra: 1. Continue current medical regimen 2. We will continue to follow along
[2021-08-29 17:56] LABS: Squamous Epithelial Ur./Cath Occasional #/hpf (0-5)
[2021-08-29 18:30] LABS: Hemoglobin 6.6 g/dL (12.2-16.2)
--- NOTE | 2021-08-29 18:30 | PC.NURSE ---
18:30 Notified by Tony in Lab. Pt. name and date of verified. Hemoglobin at 6.6, Lab value read back and verified. 18:[address] Whittington on the telephone. report given on Hemoglobin at 6.6. MD v/u. reports he will be in to see her. Nurse V/U.
--- NOTE | 2021-08-29 18:50 | PC.NURSE ---
SPOKE WITH SURGERY WAREHOUSE COORDINATOR TEAM: EZRA THOMSON, EMILIO CUI AND KATTY, GOLD LEAF LAYER. INFORMED THEM DR. STEWARD WANTS TO TAKE PATIENT TO SURGERY; EXPLORATORY LAPAROTOMY. DR. STEWARD STATED HE WOULD NOTIFY DR. JEREZ FOR ASSISTANCE.
--- NOTE | 2021-08-29 18:51 | HMH.ACPN2 ---
Internal Medicine - PN: Subj *Date: 08/29/21 *Time: 18:51 Interval history: We repeated her hemoglobin and it was 6.6. It was 7.4 approximately 4 hours ago. She is hemodynamically stable but her abdomen is quite distended. I suspect she has an oozing blood vessel. We will go ahead and take her back to the operating room and check her. She has 2 units of blood on hold and we will go ahead and give them to her. Exam Vital signs and Labs for Last 24 Hours: Temp Pulse Resp BP Pulse Ox 98.4 F 80 16 103/40 L 97 08/29/21 17:00 08/29/21 17:00 08/29/21 17:00 08/29/21 17:00 08/29/21 17:00 Laboratory Results - last 24 hr 08/29/21 05:12: WBC 6.4, RBC 4.54, Hgb 10.1 L, Hct 33.9 L, MCV 74.7 L, MCH 22.3 L, MCHC 29.8 L, RDW 22.5 H, Plt Count 143, MPV 8.3, Neut % (Auto) 73.9, Lymph % (Auto) 17.3, [place] % (Auto) 7.0, Eos % (Auto) 1.6, Baso % (Auto) 0.2, Neut # (Auto) 4.7, Lymph # (Auto) 1.1, [place] # (Auto) 0.5, Eos # (Auto) 0.1, Baso # (Auto) 0.0 08/29/21 05:12: Sodium 136, Potassium 3.8, Chloride 101, Carbon Dioxide 28, Anion Gap 10.8, BUN 4 L D, Creatinine 0.60, Estimated Creat Clear 112, Estimated GFR 110, Est GFR ( Amer) 133, Glucose 86, Calcium 8.2 L 08/29/21 07:25: Urine Color Yellow, Urine Appearance Clear, Urine pH 6.5, Ur Specific [place] 1.010, Urine Protein Negative, Urine Glucose (UA) Negative, Urine Ketones Negative, Urine Blood Negative, Urine Nitrate Negative, Urine Bilirubin Negative, Urine Urobilinogen 0.2, Ur Leukocyte Esterase Negative, Urine RBC None, Urine WBC None, Ur Squamous Epith Cells Occasional, Urine Bacteria None 08/29/21 13:56: Hgb 7.4 L D, Hct 24.8 L 08/29/21 17:48: Hgb 6.6 L*, Hct 23.0 L I & O for Last 24 hours: Intake & Output 08/27/21 08/28/21 08/29/21 08/30/21 11:59 11:59 11:59 11:59 Intake Total 1999 1865 / 1865 1360 / 1360 Output Total 0 / 0 500 / 500 Balance 1999 1865 / 1865 1360 / 1360 -500 / -500 Weight 128 lb 6.4 oz - Constitutional no acute distress - *Routine Abdominal Exam Present: soft, normoactive bowel sounds, distended Assessment and Plan (1) Uterine hypertrophy Status: Acute Category: Medical Code(s): N85.2 - Hypertrophy of uterus (2) Anemia Status: Acute Category: Medical Code(s): D64.9 - Anemia, unspecified (3) Endometritis Status: Acute Category: Medical Code(s): N71.9 - Inflammatory disease of uterus, unspecified (4) Sepsis Status: Acute Qualifiers: Sepsis type: sepsis due to unspecified organism Sepsis acute organ dysfunction status: unspecified Qualified Code(s): A41.9 - Sepsis, unspecified organism Category: Medical Code(s): A41.9 - Sepsis, unspecified organism (5) UTI (urinary tract infection) Status: Acute Qualifiers: Urinary tract infection type: acute cystitis Hematuria presence: with hematuria Qualified Code(s): N30.01 - Acute cystitis with hematuria Category: Medical Code(s): N39.0 - Urinary tract infection, site not specified (6) Uterine fibroid Status: Acute Category: Medical Code(s): D25.9 - Leiomyoma of uterus, unspecified (7) Postoperative anemia Status: Acute Category: Medical Code(s): D64.9 - Anemia, unspecified - Assessment and plan all Dx Assessment and Plan for all problems:: I suspect she has a small bleeder going on and she has dropped her hemoglobin significantly enough that I think we need to go back in and find this bleeder. We discussed the risks of bleeding, infection, injuries to adjacent structures. All questions were answered and consents were signed for exploratory laparotomy.
--- NOTE | 2021-08-29 18:51 | PC.NURSE ---
NOTIFIED FERNANDO, SRNA THAT SURGERY TEAM HAS CALLED BACK AND ARE ON THEIR WAY.
--- NOTE | 2021-08-29 19:31 | PC.NURSE ---
Report given to Irlanda [facility] EMILIO.
--- NOTE | 2021-08-29 19:35 | PC.NURSE ---
Pt. down to OR accompanied by OR staff x2.
--- NOTE | 2021-08-29 20:37 | P.OP_ITS ---
Date of procedure: 08/29/21 Pre-op Diagnosis:: Postoperative bleeding Post-op Diagnosis:: Postoperative bleeding from left ovarian pedicle Procedure performed:: Exploratory laparotomy, left oophorectomy Surgeon:: Ben Whittington MD HEAT TREATING FURNACE TENDER:: Sourav Estrada Anesthesia: GETA Estimated blood loss (mL): 50 Clinical Note:: She is a 41-year-old lady who just recently had a total abdominal hysterectomy for a large fibroid uterus this morning. Her hemoglobin prior to surgery was 10.1 and then at 2:00 this afternoon it was 7.4. We repeated it 4 hours later and her hemoglobin was 6.6. We suspect that she was having some intraabdominal bleeding postoperatively and as result of that we elected to take her for an exploratory laparotomy. Risks and benefits of surgery discussed with patient and her boyfriend prior to the surgery. Operative findings:: She had approximately 1200 cc of blood in the pelvis. This was from an ooze that was found on the left ovarian pedicle. The rest of the abdomen was dry. There was no active bleeding from any other spot in the pelvis. We examined the opposite right ovary and it was completely normal. There was no oozing from that at all. As result of this we elected to remove the left ovary since there was significant bleeding along the ovarian pedicle. Operative note:: She was taken the operating room where general anesthesia was found to be adequate. She is prepped Olga sterile fashion in the supine position. A Verma catheter was in the bladder. We removed her sutures and opened up into the abdominal cavity through the previous incision. Upon entering the abdominal cavity there was copious blood clots which were removed. There was also old blood in the pelvis as well and we removed approximately 1200 cc of clots and blood. We then inserted an O'Lester-O'Weiner retractor and packed away the bowel with warm moist packs. It was noted that there was some bleeding from the left ovary and since it was from the pedicle and there is a couple of areas of bleeding we elected to remove the left ovary. I was able to easily clamp across the left utero-ovarian ligament. The ovary was then removed from the pedicle and the pedicle was suture-ligated followed by a free tie. Once again hemostasis was assured here. We then rinsed the pelvis well with warm saline and there were no areas of bleeding and no blood in the pelvis. We placed a small piece of Gelfoam under the peritoneum near where the pedicle was and oversewed this. I then placed the rest of the Gelfoam in the deep pelvis. The peritoneum was then closed with running 2-0 Vicryl suture. The fascia was closed with running 0 PDS suture from inferior to midline and then from superior to midline. Each suture was tied individually. The incision was then rinsed with warm saline. I then closed the underlying fatty tissue with running 2-0 Monocryl suture. The skin was closed with running subcuticular 4-0 Monocryl strata fix suture with 2 needles. I then cleaned the skin with Hibiclens and applied Steri-Strips. A sterile dressing was applied. She tolerated procedure well and was taken to the recovery room in excellent condition. All sponge, instrument and needle counts were correct. The estimated blood loss prior to her surgery was approximately 1200 cc. She lost less than 50 cc intraoperatively. Condition: stable Disposition: PACU Specimens:: Left ovary Complications:: Postoperative bleeding from the left ovary.
--- NOTE | 2021-08-29 20:56 | PC.NURSE ---
CALLED TO LET ME KNOW PT DID WELL AND WAS IN PACU NOW.HE SAID IT WAS ALRIGHT TO CALL HIM WITH THE POST TRANSFUSION H/H AND THAT HE PUT NEW ORDERS IN.HE SAID HE WOULD BE BY TO SEE HER IN AM.
--- NOTE | 2021-08-29 20:56 | HMH.ANESI ---
[facility] Anesthesia Record Part I Intake, IV Amount: 1,500 Estimated blood loss (mL): 1,200 Urine output (mL): 200 Blood Products used (#): PRBC's Blood Pressure: 117/65 SaO2: 98 Pulse Rate: 78 Respiratory Rate: 12 Temperature: 98.3 F Patient is:: Awake, Stable Stable to PACU at:: 20:50
--- NOTE | 2021-08-29 21:34 | PC.NURSE ---
2116-detailed report called to EMILIO Alford 2119-pt transported to OB room 279 via hospital bed w/fariha rails up and left in care of EMILIO Alford with bed locked in lowest position, vss, pt stable
[2021-08-29 21:47] LABS: Hematocrit 29.4 % (37.0-47.0)
--- NOTE | 2021-08-29 21:49 | SUR.OPER ---
1950- ordered for pt to have 2 units PRBCs transfused during procedure, 1st unit of PRBC's started per EZRA Porras -see TAR & anesthesia record for details 2009-1st unit of PRBC's completed at this time per EZRA Porras, no s/s of transfusion reaction, see TAR/anesthesia record for details 2012-2nd units of PRBC's started per EZRA Porras -see TAR & anesthesia record for details 2024-2nd units of PRBC's completed at this time, pt matilde well, no s/s of transfusion reaction, see TAR & anesthesia record for details, will continue to monitor
--- NOTE | 2021-08-29 21:50 | PC.NURSE ---
HAD CALLED CARLYLE JHAVERI TO SEE IF TORADOL HAD BEEN GIVEN AND SHE SAID SHE DID NOT KNOW,THAT ALIX(JESSICA) MAY NOT HAVE GIVEN IT DUE TO HER BLEEDING,SO I CALLED AND HE SUGGESTED TO AT LEAST HOLD THE 2100 DOSE AND SEE WHAT SAID
--- NOTE | 2021-08-29 21:55 | PC.NURSE ---
PT MOTHER IN TO SEE PT AT THIS TIME,SINCE SHE HAD TO HAVE SURGERY AGAIN AND JUST RETURNED TO FLOOR AND HER MOTHER CAME FROM [facility] TO SEE HER.HERE FOR A BRIEF TIME
--- NOTE | 2021-08-29 22:18 | PC.NURSE ---
NOTIFIED OF THE H/H OF 9.0/29.4,ASKED HIM ABOUT THE TORADOL TO SEE IF HE WANTED HER TO HAVE IT WITH HER BLEEDING,TOLD HIM THAT ALIX SAID IT WAS UP TO HIM,BUT HE WOULD HOLD AT LEAST THE 2100 DOSE,ORDERS TO HOLD TORADOL UNTIL IN AM 0930 DOSE
[2021-08-30] VITALS (12 sets, daily range): BP systolic 112–151; BP diastolic 55–95; PULSE 63–90; RESP 16–18; TEMP 36.6–36.9; O2SAT 95–99
--- NOTE | 2021-08-30 00:07 | PC.NURSE ---
PT C/O HURTING IN HER ABD.ABD.DISTENDED-NORMAL BOWEL SOUNDS X 4 QUADS,PT REPORTS SHE HAS PASSED A LITTLE GAS,NOT MUCH.PAIN IS A 10 ON SCALE OF 0-10,MEDICATED WITH MORPHINE 4 MG IVP.NO CHANGE ON THE MIDLINE DRESSING,MODERATE AMT OF SEROSANG.DRAINAGE NOTED.V/S STABLE
--- NOTE | 2021-08-30 05:48 | PC.NURSE ---
PT SLEPT A GOOD 3-4 HOURS,WOKE UP WITH PAIN,MEDICATED HER WITH MORPHINE 4MG IVP FOR A PAIN OF 10 ON SCALE OF 0-10.PT ABD.IS DISTENED AND TENDER TO TOUCH,POSITIVE BOWEL SOUNDS,PT DENIES PASSING ANY GAS,MYLICON GIVEN FOR THIS,LUNGS CLEAR ALL FRONT,NO NEW DRAINAGE TO MIDLINE ABD.DRESSING.OLD SEROSANG.ROBERTSON CATH PATENT AND DRAINING CLEAR YELLOW URINE 1150ML EMPTIED FROM F/C,SMALL AMT OLD BLOOD NOTED ON KOTEX PAD.V/S STABLE
--- NOTE | 2021-08-30 06:28 | PC.NURSE ---
LAB IN TO DRAW CBC AND CHEM
[2021-08-30 07:04] LABS: Chloride 102 mmol/L (98-107); Sodium 135 mmol/L (136-145)
[2021-08-30 07:05] LABS: Potassium 3.5 mmoL/L (3.5-5.1)
[2021-08-30 07:07] LABS: Anion Gap 7.5 mEq/L (5-15); Blood Urea Nitrogen 4 mg/dl (7-17); Carbon Dioxide 29 mmol/L (22.0-30.0); Creatinine Clearance Estimated 112 mL/min (50-200); Estimated Glomerular Filt Rate 110 ml/min (>60); GFR (African American) 133 ML/MIN (>60)
[2021-08-30 07:08] LABS: Calcium 6.8 mg/dl (8.4-10.2); Glucose 102 mg/dl (74-100)
[2021-08-30 07:25] LABS: Basophils % 0.2 % (0.1-2.0); Eosinophils % 0.2 % (0.1-12.0); Hematocrit 27.3 % (37.0-47.0); Hemoglobin 8.5 g/dL (12.2-16.2); Lymphocytes # 1.2 K/mm3 (0.7-4.5); Lymphocytes % 12.5 % (10-50); Mean Corpuscular HGB Conc 31.3 g/dL (31.8-35.4); Mean Corpuscular Hemoglobin 25.4 pg (27.0-31.2); Mean Corpuscular Volume 81.3 fl (81-99); Mean Platelet Volume 11.8 fl (7.4-10.4); Monocytes # 0.6 K/mm3 (0.1-1.0); Monocytes % 5.9 % (1.7-9.3); Neutrophils # 7.9 K/mm3 (1.8-7.8); Neutrophils % 81.2 % (37.0-80.0); Platelet Count 177 K/mm3 (142-424); Red Blood Count 3.36 M/mm3 (4.20-5.40); Red Cell Distribution Width 21.9 % (11.5-17.5); White Blood Count 9.7 K/mm3 (4.8-10.8)
--- NOTE | 2021-08-30 10:47 | HMH.ACPN2 ---
Internal Medicine - PN: Subj *Date: 08/30/21 *Time: 10:47 Interval history: s/p surg and sig pain but overall doing better - taking liquids Exam Vital signs and Labs for Last 24 Hours: Temp Pulse Resp BP Pulse Ox 97.8 F 90 18 151/95 H 95 08/30/21 09:00 08/30/21 09:00 08/30/21 09:00 08/30/21 09:00 08/30/21 09:00 Laboratory Results - last 24 hr 08/28/21 13:10: Blood Type B Negative, Antibody Screen Negative, Crossmatch (AHG) See Detail 08/29/21 07:25: Urine Color Yellow, Urine Appearance Clear, Urine pH 6.5, Ur Specific [place] 1.010, Urine Protein Negative, Urine Glucose (UA) Negative, Urine Ketones Negative, Urine Blood Negative, Urine Nitrate Negative, Urine Bilirubin Negative, Urine Urobilinogen 0.2, Ur Leukocyte Esterase Negative, Urine RBC None, Urine WBC None, Ur Squamous Epith Cells Occasional, Urine Bacteria None 08/29/21 13:56: Hgb 7.4 L D, Hct 24.8 L 08/29/21 17:48: Hgb 6.6 L*, Hct 23.0 L 08/29/21 21:30: Hgb 9.0 L D, Hct 29.4 L 08/30/21 06:32: WBC 9.7 D, RBC 3.36 L D, Hgb 8.5 L, Hct 27.3 L, MCV 81.3, MCH 25.4 L, MCHC 31.3 L, RDW 21.9 H, Plt Count 177, MPV 11.8 H, Neut % (Auto) 81.2 H, Lymph % (Auto) 12.5, [place] % (Auto) 5.9, Eos % (Auto) 0.2, Baso % (Auto) 0.2, Neut # (Auto) 7.9 H, Lymph # (Auto) 1.2, [place] # (Auto) 0.6, Eos # (Auto) 0.0, Baso # (Auto) 0.0 08/30/21 06:32: Sodium 135 L, Potassium 3.5, Chloride 102, Carbon Dioxide 29, Anion Gap 7.5, BUN 4 L, Creatinine 0.60, Estimated Creat Clear 112, Estimated GFR 110, Est GFR ( Amer) 133, Glucose 102 H, Calcium 6.8 L I & O for Last 24 hours: Intake & Output 08/27/21 08/28/21 08/29/21 08/30/21 11:59 11:59 11:59 11:59 Intake Total 1999 1865 / 1865 1360 / 1360 2360 / 2360 Output Total 0 / 0 1650 / 1650 Balance 1999 1865 / 1865 1360 / 1360 710 / 710 Weight 128 lb 6.4 oz - Constitutional no acute distress, thin - *Routine HEENT Exam Head: Present: normocephalic Eye: Present: EOMI, PERRL ENT: Present: mucous membranes dry - *Routine Neck Exam Present: supple. Absent: JVD - *Routine Respiratory Exam Absent: respiratory distress - *Routine Cardiovascular Exam Present: RRR - *Routine Abdominal Exam Present: soft - *Routine Extremities Exam Absent: calf tenderness - *Routine Skin Exam Present: intact - *Routine Neurological Exam Present: alert, pronator drift - Routine Psychiatric Exam Present: cooperative Assessment and Plan (1) Uterine hypertrophy Status: Acute Category: Medical Code(s): N85.2 - Hypertrophy of uterus (2) Anemia Status: Acute Category: Medical Code(s): D64.9 - Anemia, unspecified (3) Endometritis Status: Acute Category: Medical Code(s): N71.9 - Inflammatory disease of uterus, unspecified (4) Sepsis Status: Acute Qualifiers: Sepsis type: sepsis due to unspecified organism Sepsis acute organ dysfunction status: unspecified Qualified Code(s): A41.9 - Sepsis, unspecified organism Category: Medical Code(s): A41.9 - Sepsis, unspecified organism (5) UTI (urinary tract infection) Status: Acute Qualifiers: Urinary tract infection type: acute cystitis Hematuria presence: with hematuria Qualified Code(s): N30.01 - Acute cystitis with hematuria Category: Medical Code(s): N39.0 - Urinary tract infection, site not specified (6) Uterine fibroid Status: Acute Category: Medical Code(s): D25.9 - Leiomyoma of uterus, unspecified (7) Postoperative anemia Status: Acute Category: Medical Code(s): D64.9 - Anemia, unspecified
--- NOTE | 2021-08-30 12:07 | HMH.ACPN2 ---
Internal Medicine - PN: Subj *Date: 08/30/21 *Time: 12:07 Interval history: She is doing much better this morning. She still has some pain. She did have a tap block yesterday afternoon and when I rub my hand across her incision she does not have much in the way of discomfort. Her abdomen is still somewhat distended but during her surgery yesterday she had a lot of gas in the colon. She denies any shortness of breath or chest pain. She denies any calf tenderness. She is drinking fluids now. She is putting out good urine. She would like her catheter out. Exam Vital signs and Labs for Last 24 Hours: Temp Pulse Resp BP Pulse Ox 97.8 F 90 18 151/95 H 95 08/30/21 09:00 08/30/21 09:00 08/30/21 09:00 08/30/21 09:00 08/30/21 09:00 Laboratory Results - last 24 hr 08/28/21 13:10: Blood Type B Negative, Antibody Screen Negative, Crossmatch (AHG) See Detail 08/29/21 07:25: Urine Color Yellow, Urine Appearance Clear, Urine pH 6.5, Ur Specific [place] 1.010, Urine Protein Negative, Urine Glucose (UA) Negative, Urine Ketones Negative, Urine Blood Negative, Urine Nitrate Negative, Urine Bilirubin Negative, Urine Urobilinogen 0.2, Ur Leukocyte Esterase Negative, Urine RBC None, Urine WBC None, Ur Squamous Epith Cells Occasional, Urine Bacteria None 08/29/21 13:56: Hgb 7.4 L D, Hct 24.8 L 08/29/21 17:48: Hgb 6.6 L*, Hct 23.0 L 08/29/21 21:30: Hgb 9.0 L D, Hct 29.4 L 08/30/21 06:32: WBC 9.7 D, RBC 3.36 L D, Hgb 8.5 L, Hct 27.3 L, MCV 81.3, MCH 25.4 L, MCHC 31.3 L, RDW 21.9 H, Plt Count 177, MPV 11.8 H, Neut % (Auto) 81.2 H, Lymph % (Auto) 12.5, [place] % (Auto) 5.9, Eos % (Auto) 0.2, Baso % (Auto) 0.2, Neut # (Auto) 7.9 H, Lymph # (Auto) 1.2, [place] # (Auto) 0.6, Eos # (Auto) 0.0, Baso # (Auto) 0.0 08/30/21 06:32: Sodium 135 L, Potassium 3.5, Chloride 102, Carbon Dioxide 29, Anion Gap 7.5, BUN 4 L, Creatinine 0.60, Estimated Creat Clear 112, Estimated GFR 110, Est GFR ( Amer) 133, Glucose 102 H, Calcium 6.8 L I & O for Last 24 hours: Intake & Output 08/28/21 08/29/21 08/30/21 08/31/21 11:59 11:59 11:59 11:59 Intake Total 1865 / 1865 1360 / 1360 2360 / 2360 Output Total 0 / 0 1650 / 1650 Balance 1865 / 1865 1360 / 1360 710 / 710 - Constitutional no acute distress - *Routine HEENT Exam Head: Present: normocephalic Eye: Present: EOMI, PERRL ENT: Present: mucous membranes moist - *Routine Neck Exam Present: supple. Absent: lymphadenopathy - *Routine Respiratory Exam Present: CTA bilaterally - *Routine Cardiovascular Exam Present: RRR - *Routine Abdominal Exam Present: soft, normoactive bowel sounds, distended Comments: Her incision is clean and dry. She does not have much in the way of bowel sounds. - *Routine Extremities Exam Absent: cyanosis, clubbing, edema - *Routine Skin Exam Present: warm. Absent: rash Assessment and Plan (1) Uterine hypertrophy Status: Acute Category: Medical Code(s): N85.2 - Hypertrophy of uterus (2) Anemia Status: Acute Category: Medical Code(s): D64.9 - Anemia, unspecified (3) Endometritis Status: Acute Category: Medical Code(s): N71.9 - Inflammatory disease of uterus, unspecified (4) Sepsis Status: Acute Qualifiers: Sepsis type: sepsis due to unspecified organism Sepsis acute organ dysfunction status: unspecified Qualified Code(s): A41.9 - Sepsis, unspecified organism Category: Medical Code(s): A41.9 - Sepsis, unspecified organism (5) UTI (urinary tract infection) Status: Acute Qualifiers: Urinary tract infection type: acute cystitis Hematuria presence: with hematuria Qualified Code(s): N30.01 - Acute cystitis with hematuria Category: Medical Code(s): N39.0 - Urinary tract infection, site not specified (6) Uterine fibroid Status: Acute Category: Medical Code(s): D25.9 - Leiomyoma of uterus, unspecified (7) Postoperative anemia Status: Acute Category: Medical Code(s): D64.9 - Anemia,
--- NOTE | 2021-08-30 12:20 | PC.NURSE ---
1200 DR. STEWARD AT BEDSIDE, PT WITH EYE CLOSED AND REQUESTING PAIN MEDICATION, PT WITH VAPE PEN IN LAP. REINFORCED NO SMOKING OR VAPING WHILE ON H PROPERTY. VAPE TAKEN BY S.O. INSTRUCTED TO TAKE VAPE PEN HOME REINFORCED BY DR. STEWARD. NICOTINE PATCH OFFERED, PT REFUSED. PT REQUESSTING TO HAVE F/C REMOVED, OK'D BY . NO FURTHER NEEDS OR CONCERNS AT THIS TIME
--- NOTE | 2021-08-30 16:27 | PC.NURSE ---
PT HAS RESTED WELL THIS SHIFT, PAIN WELL CONTROLLED, PT HAS SLEPT AT INTERVALS. VITAL SIGNS STABLE, AFEBRILE. O2 OFF EARLY THIS AM. PT DROWSY AT TIMES, AWAKENS EASILY. MEDICATED FOR PAIN, SEE EMAR. A&O X 4. HEART RATE REGULAR, LUNGS CTAB. ABD DISTENDED AND TENDER, UNCHANGED SINCE AM ASSESSMENT. BOWEL SOUNDS REMAIN HYPOACTIVE, PT REPORTS OCCASIONAL BELCHING. NO BM. MIDLINE INCISION, DRESSING WITH SEROSANG DRAINAGE, UNCHANGED. PT HAS NOT VOIDED SINCE ROBERTSON REMOVED. DENIES NEED TO VOID. SCANT VAGINAL BLEEDING NOTED TO LETICIA-PAD. IV PATENT. TOLERATING CLEAR LIQUID DIET. NO EDEMA. CALL LIGHT WITHIN REACH. S.O AT BEDSIDE.
[2021-08-31] VITALS: BP 121/76; PULSE 73; RESP 18; TEMP 36.8; O2SAT 95
[2021-08-31 04:00] VITALS: BP 138/70; PULSE 76; RESP 18; TEMP 36.8; O2SAT 96
[2021-08-31 04:04] VITALS: BMI 22.6
--- NOTE | 2021-08-31 04:06 | PC.NURSE ---
Pt has rested and slept well this shift. Pt is A&Ox4, BLT lungs CTA, bowel sounds are active in all 4 quadrants. Pt is on RA, Pt ambulates with standby assistance to the bathroom. Pt has had good urine output this shift. IV patent and infusing well. Pt abdomen tender and firm to touch, midline surgical incision with dressing remaining intact, no new drainage at this time.Pt pain managed per SEP. Pt denies SOA, headache, or N/V. VSS will continue to monitor
[2021-08-31 06:38] LABS: Eosinophils # 0.1 K/mm3 (0.0-0.4); Eosinophils % 1.2 % (0.1-12.0); Lymphocytes % 13.2 % (10-50); Mean Corpuscular HGB Conc 30.3 g/dL (31.8-35.4); Mean Corpuscular Hemoglobin 24.9 pg (27.0-31.2); Mean Corpuscular Volume 82.4 fl (81-99); Monocytes # 0.4 K/mm3 (0.1-1.0); Monocytes % 5.1 % (1.7-9.3); Neutrophils # 5.7 K/mm3 (1.8-7.8); Neutrophils % 80.4 % (37.0-80.0); Platelet Count 182 K/mm3 (142-424); Red Blood Count 2.98 M/mm3 (4.20-5.40); Red Cell Distribution Width 22.7 % (11.5-17.5); White Blood Count 7.1 K/mm3 (4.8-10.8)
[2021-08-31 06:39] LABS: Hematocrit 24.5 % (37.0-47.0); Hemoglobin 7.4 g/dL (12.2-16.2)
[2021-08-31 08:00] VITALS: BP 121/68; PULSE 64; RESP 16; TEMP 36.7; O2SAT 95
[2021-08-31 08:49] LABS: Chloride 100 mmol/L (98-107); Sodium 134 mmol/L (136-145)
[2021-08-31 08:50] LABS: Potassium 3.5 mmoL/L (3.5-5.1)
[2021-08-31 08:53] LABS: Anion Gap 5.5 mEq/L (5-15); Blood Urea Nitrogen 3 mg/dl (7-17); Calcium 7.1 mg/dl (8.4-10.2); Carbon Dioxide 32 mmol/L (22.0-30.0); Creatinine Clearance Estimated 139 mL/min (50-200); Estimated Glomerular Filt Rate 135 ml/min (>60); GFR (African American) 164 ML/MIN (>60); Glucose 84 mg/dl (74-100)
--- NOTE | 2021-08-31 09:18 | PC.NURSE ---
DR. MCKEON AND DR. STEWARD DISCUSSING PT. ROUNDING. NO NEW ORDERS
--- NOTE | 2021-08-31 09:31 | HMH.ACPN2 ---
Internal Medicine - PN: Subj *Date: 08/31/21 *Time: 09:31 Interval history: She continues to do well this morning. She is eating and drinking well. She has been passing some gas. She denies any chest pain, shortness of breath or calf tenderness. Her incision is clean and dry. She still has some mild abdominal distention but her belly is soft and there are significant bowel sounds now. Exam Vital signs and Labs for Last 24 Hours: Temp Pulse Resp BP Pulse Ox 98.1 F 64 16 121/68 95 08/31/21 08:00 08/31/21 08:00 08/31/21 08:00 08/31/21 08:00 08/31/21 08:00 Laboratory Results - last 24 hr 08/31/21 06:00: WBC 7.1 D, RBC 2.98 L, Hgb 7.4 L D, Hct 24.5 L, MCV 82.4, MCH 24.9 L, MCHC 30.3 L, RDW 22.7 H, Plt Count 182, MPV 11.0 H, Neut % (Auto) 80.4 H, Lymph % (Auto) 13.2, [place] % (Auto) 5.1, Eos % (Auto) 1.2, Baso % (Auto) 0.0 L, Neut # (Auto) 5.7, Lymph # (Auto) 1.0, [place] # (Auto) 0.4, Eos # (Auto) 0.1, Baso # (Auto) 0.0 08/31/21 06:00: Sodium 134 L, Potassium 3.5, Chloride 100, Carbon Dioxide 32 H, Anion Gap 5.5, BUN 3 L, Creatinine 0.50 L, Estimated Creat Clear 139, Estimated GFR 135, Est GFR ( Amer) 164 D, Glucose 84, Calcium 7.1 L I & O for Last 24 hours: Intake & Output 08/28/21 08/29/21 08/30/21 08/31/21 11:59 11:59 11:59 11:59 Intake Total 1865 / 1865 1360 / 1360 2360 / 2360 Output Total 0 / 0 1650 / 2300 2550 / 2550 Balance 1865 / 1865 1360 / 1360 710 / 60 -2550 / -2550 Weight 132 lb 4.438 oz Microbiology Reports for the Last 24 Hours: Microbiology 08/25/21 14:15 Blood Blood Culture - Final NO GROWTH AFTER 5 DAYS 08/25/21 14:15 Blood Blood Culture - Final NO GROWTH AFTER 5 DAYS - Constitutional no acute distress - *Routine HEENT Exam Head: Present: normocephalic Eye: Present: EOMI, PERRL ENT: Present: mucous membranes moist - *Routine Respiratory Exam Present: CTA bilaterally - *Routine Cardiovascular Exam Present: RRR - *Routine Abdominal Exam Present: soft, normoactive bowel sounds, distended. Absent: tenderness Comments: Her incision is clean and dry - *Routine Extremities Exam Absent: cyanosis, clubbing, edema - *Routine Skin Exam Present: warm. Absent: rash - *Routine Neurological Exam Present: alert, oriented X3 Assessment and Plan (1) Uterine hypertrophy Status: Acute Category: Medical Code(s): N85.2 - Hypertrophy of uterus (2) Anemia Status: Acute Category: Medical Code(s): D64.9 - Anemia, unspecified (3) Endometritis Status: Acute Category: Medical Code(s): N71.9 - Inflammatory disease of uterus, unspecified (4) Sepsis Status: Acute Qualifiers: Sepsis type: sepsis due to unspecified organism Sepsis acute organ dysfunction status: unspecified Qualified Code(s): A41.9 - Sepsis, unspecified organism Category: Medical Code(s): A41.9 - Sepsis, unspecified organism (5) UTI (urinary tract infection) Status: Acute Qualifiers: Urinary tract infection type: acute cystitis Hematuria presence: with hematuria Qualified Code(s): N30.01 - Acute cystitis with hematuria Category: Medical Code(s): N39.0 - Urinary tract infection, site not specified (6) Uterine fibroid Status: Acute Category: Medical Code(s): D25.9 - Leiomyoma of uterus, unspecified (7) Postoperative anemia Status: Acute Category: Medical Code(s): D64.9 - Anemia, unspecified - Assessment and plan all Dx Assessment and Plan for all problems:: She is doing much better this morning. She is drinking well. She has been passing gas. Her belly is less distended today. She denies any chest pain or shortness of breath or calf tenderness. Her hemoglobin is slightly low at 7.4 today. She is asymptomatic with respect to this. Her vital signs are stable. We will go ahead and start iron tablets today. We will plan to send her home tomorrow. She will s
--- NOTE | 2021-08-31 11:31 | HMH.ACPN2 ---
Internal Medicine - PN: Subj *Date: 09/01/21 *Time: 07:39 Interval history: doing better - feels better - reviewed labs Exam Vital signs and Labs for Last 24 Hours: Temp Pulse Resp BP Pulse Ox 98.1 F 64 16 121/68 95 08/31/21 08:00 08/31/21 08:00 08/31/21 08:00 08/31/21 08:00 08/31/21 08:00 Laboratory Results - last 24 hr 08/31/21 06:00: WBC 7.1 D, RBC 2.98 L, Hgb 7.4 L D, Hct 24.5 L, MCV 82.4, MCH 24.9 L, MCHC 30.3 L, RDW 22.7 H, Plt Count 182, MPV 11.0 H, Neut % (Auto) 80.4 H, Lymph % (Auto) 13.2, [place] % (Auto) 5.1, Eos % (Auto) 1.2, Baso % (Auto) 0.0 L, Neut # (Auto) 5.7, Lymph # (Auto) 1.0, [place] # (Auto) 0.4, Eos # (Auto) 0.1, Baso # (Auto) 0.0 08/31/21 06:00: Sodium 134 L, Potassium 3.5, Chloride 100, Carbon Dioxide 32 H, Anion Gap 5.5, BUN 3 L, Creatinine 0.50 L, Estimated Creat Clear 139, Estimated GFR 135, Est GFR ( Amer) 164 D, Glucose 84, Calcium 7.1 L I & O for Last 24 hours: Intake & Output 08/28/21 08/29/21 08/30/21 08/31/21 11:59 11:59 11:59 11:59 Intake Total 1865 / 1865 1360 / 1360 2360 / 2360 Output Total 0 / 0 1650 / 2300 2550 / 2550 Balance 1865 / 1865 1360 / 1360 710 / 60 -2550 / -2550 Weight 132 lb 4.438 oz Microbiology Reports for the Last 24 Hours: Microbiology 08/25/21 14:15 Blood Blood Culture - Final NO GROWTH AFTER 5 DAYS 08/25/21 14:15 Blood Blood Culture - Final NO GROWTH AFTER 5 DAYS - Constitutional no acute distress - *Routine HEENT Exam Head: Present: normocephalic Eye: Present: EOMI, PERRL ENT: Present: mucous membranes dry - *Routine Neck Exam Absent: JVD - *Routine Respiratory Exam Present: CTA bilaterally - *Routine Cardiovascular Exam Present: RRR - *Routine Abdominal Exam Present: soft - *Routine Extremities Exam Absent: calf tenderness - *Routine Skin Exam Present: intact - *Routine Neurological Exam Present: alert, CN II-XII intact - Routine Psychiatric Exam Present: normal affect Assessment and Plan (1) Uterine hypertrophy Status: Acute Category: Medical Code(s): N85.2 - Hypertrophy of uterus (2) Anemia Status: Acute Category: Medical Code(s): D64.9 - Anemia, unspecified (3) Endometritis Status: Acute Category: Medical Code(s): N71.9 - Inflammatory disease of uterus, unspecified (4) Sepsis Status: Acute Qualifiers: Sepsis type: sepsis due to unspecified organism Sepsis acute organ dysfunction status: unspecified Qualified Code(s): A41.9 - Sepsis, unspecified organism Category: Medical Code(s): A41.9 - Sepsis, unspecified organism (5) UTI (urinary tract infection) Status: Acute Qualifiers: Urinary tract infection type: acute cystitis Hematuria presence: with hematuria Qualified Code(s): N30.01 - Acute cystitis with hematuria Category: Medical Code(s): N39.0 - Urinary tract infection, site not specified (6) Uterine fibroid Status: Acute Category: Medical Code(s): D25.9 - Leiomyoma of uterus, unspecified (7) Postoperative anemia Status: Acute Category: Medical Code(s): D64.9 - Anemia, unspecified (8) SIRS (systemic inflammatory response syndrome) Status: Acute Category: Medical Code(s): R65.10 - Systemic inflammatory response syndrome (SIRS) of non-infectious origin without acute organ dysfunction
--- NOTE | 2021-08-31 14:06 | PC.NURSE ---
1400 RN AT BEDSIDE FOR ROUNDS, PT SLEEPING SOUNDLY UPON ENTERING ROOM, AWAKENS EASILY. REPORTS ABD 02/02, MEDICTED PER EMAR. REPORTS IV SITE PAINFUL. IV SITE ASSESSED, EDEMA NOTED. PAINFUL TO TOUCH. IV REMOVED. ANGIOCATH INTACT. SITE WRAPPED WITH 2X2 AND COBAN. PT REFUSED TO HAVE NEW IV PLACED.
[2021-08-31 16:00] VITALS: BP 145/75; PULSE 77; RESP 16; TEMP 36.8; O2SAT 96
--- NOTE | 2021-08-31 16:50 | PC.NURSE ---
1630 PT HAS SLEPT NEARLY ALL SHIFT, AMBULATES TO BR WITHOUT DIFFICULTY. VOIDING WITHOUT DIFFICULTY, REPORTS HAVING LOOSE BM. A&O X 4. VSS, HEART RATE REGULAR, NO EDEMA. LUNGS CTAB. ABD SLIGHTLY DISTENDED, SOFT AND TENDER. BOWEL SOUNDS ACTIVE X 4 QUADS. TOLERATING REGULAR DIET. DENIES CHEST PAIN OR SOA. MIDLINE INCISION REMAINS INTACT, UNCHANGED. OFFERED MULTIPLE TIMES THIS SHIFT FOR PT TO SHOWER, PT DECLINES. IV INFILTRATED EARLIER, PT REFUSES NEW IV, STATES SHE ID GOING HOME TOMORROW. PAIN WELL CONTROLLED PER EMAR. NO ACUTE CHANGES.
--- NOTE | 2021-08-31 17:29 | PC.NURSE ---
OFFERED PT TO SHOWER AGAIN AT THIS TIME, PT DECLINES
[2021-08-31 20:00] VITALS: BP 138/78; PULSE 82; RESP 18; TEMP 36.9; O2SAT 97
[2021-09-01 04:00] VITALS: BP 135/69; PULSE 73; RESP 17; TEMP 36.8; O2SAT 98
[2021-09-01 04:09] VITALS: BMI 22.7
--- NOTE | 2021-09-01 04:15 | PC.NURSE ---
Pt has slept most of this shift. A&O x4, BLT lungs CTA, Bowel sounds present in all 4 quadrants. Pt is on RA and ambulates to the bathroom by self. Pt midline surgical incision C/D/I, dressing removed earlier in the shift and cleaned, steri-strips intact, incision left CONFERENCE SPECIALIST. Pt showered and bed linens changed. Pt pain controlled per eMAR. Pt denies SOA, headache, N/V. VSS
[2021-09-01 06:08] LABS: Hematocrit 24.3 % (37.0-47.0); Hemoglobin 7.7 g/dL (12.2-16.2)
[2021-09-01 08:00] VITALS: BP 110/60; PULSE 78; RESP 18; TEMP 36.7; O2SAT 95
--- NOTE | 2021-09-01 08:23 | P.PN_ITS ---
[facility] Anesthesia Record Part II Discharge Time: 21:20 Destination: floor PACU nurse assessment reviewed?: Yes Patient Condition:: Good Anesthesia Complications:: None Swallowing reflex intact?: Yes Cyanosis?: No Blood Pressure: 111/70 Pulse Rate: 77 Temperature: 97.5 F Mental Status: Alert & Oriented Pain level:: 6 Nausea and/or vomitting:: None Intake, IV Amount: 1,200
[2021-09-01 08:24] VITALS: BP 111/70; PULSE 77; TEMP 36.4
--- NOTE | 2021-09-01 08:26 | HMH.DCSUM ---
General - General Admission date:: 08/25/21 Discharge date: 09/01/21 HPI HPI: She is a 41-year-old 3 para 3 lady who complains of a 4-day history of lower abdominal pain. She also has some abdominal distention. She has a mild white count and severe anemia with a hemoglobin of 6.1. Her urinalysis shows 3+ leuk esterase. She has a history of recurrent urinary tract infections. She does admit to a new partner over the last few months. She says that her fianc? of 5 years was cheating on her so she broke out off late last year. CT scan shows an enlarged uterus 14 cm in length with some tissue within the endometrial cavity. Its not clear whether she has an endometritis or possible STD. She does have a temperature as well as a white count so we will go ahead and admit her for IV antibiotics and possible endometritis. She also has a urinary tract infection. Hospital Course Hospital Course: She was admitted and started on IV antibiotics. She had a urinary tract infection. On examination her uterus was extremely enlarged and I suspect that she had a large fibroid. We elected to perform a total abdominal hysterectomy on Sunday, August 29, 2021. She was still complaining of extreme pain from her abdomen so we did not want to send her home and then have her on high doses of narcotics for her pain. She also had a hemoglobin of 6.1 on arrival. She had severe iron deficiency anemia. Her MCV was in the 60s. She received 4 units of blood prior to surgery. On the evening after her surgery she had some lowish blood pressure and her hemoglobin had dropped into the 60s again. We suspected that she may have had some abdominal bleeding and as a result of that we took her back to the operating room. It was noted that there was about 1200 cc of blood in her pelvis and abdomen. She had an area of bleeding on the left ovary and we elected to do a left oophorectomy. She has done very well postoperatively since then. Her hemoglobin is 7.7. She did receive 2 units of blood after her second Surgery. She is discharged home to follow-up with me in approximately 2 weeks time. She has sutures and Steri-Strips on her incision. It is clean and dry. She denies any shortness of breath or chest pain. She denies any calf tenderness. She did have some infiltration of her IV in her left arm and it looks somewhat edematous. I told her that it would settle on its own. We have given her the usual instructions with respect to limiting her activity, driving and sexual activity. We will give her a prescription for Percocet 5/325 number 30 tablets. She does have a prescription for gabapentin I told her not to take these if she is taking Percocets. I also told her not to take her Klonopin with her Percocets. She was given a prescription for ferrous sulfate 325 mg to take 3 times daily for the next couple of months. Her condition on discharge is stable and improved. Objective Vital signs: Temp Pulse Resp BP Pulse Ox 97.5 F L 77 17 111/70 98 09/01/21 08:24 09/01/21 08:24 09/01/21 04:00 09/01/21 08:24 09/01/21 04:00 no acute distress - *Routine HEENT Exam Head: Present: normocephalic Eye: Present: EOMI, PERRL ENT: Present: mucous membranes moist - *Routine Neck Exam Present: supple - *Routine Respiratory Exam Present: CTA bilaterally - *Routine Cardiovascular Exam Present: RRR - *Routine Abdominal Exam Present: soft, normoactive bowel sounds. Absent: tenderness - *Routine Extremities Exam Absent: cyanosis, clubbing, edema - *Routine Skin Exam Present: warm. Absent: rash Results Labs on day of discharge: Labs from last 24 hours 09/01/21 08/31/21 08/28/21 05:20 06:00 13:10 Hgb 7.7 L Hct 24.3 L Sodium 134 L Potassium 3.5 Chloride 100 Carbon Dioxide 32 H Anion Gap 5.5 BUN 3 L Creatinine 0.50 L Estimated Creat Clear 139 Estimated GFR 135 Est GFR ( Amer)
--- NOTE | 2021-09-01 09:32 | HMH.ACPN2 ---
Internal Medicine - PN: Subj *Date: 09/01/21 *Time: 08:10 Interval history: pt laying in bed, states she is feeling well. Exam Vital signs and Labs for Last 24 Hours: Temp Pulse Resp BP Pulse Ox 97.5 F L 77 17 111/70 98 09/01/21 08:24 09/01/21 08:24 09/01/21 04:00 09/01/21 08:24 09/01/21 04:00 Laboratory Results - last 24 hr 08/28/21 13:10: Crossmatch (AHG) See Detail 09/01/21 05:20: Hgb 7.7 L, Hct 24.3 L I & O for Last 24 hours: Intake & Output 08/29/21 08/30/21 08/31/21 09/01/21 11:59 11:59 11:59 11:59 Intake Total 1360 / 1360 2360 / 2360 1200 / 1200 Output Total 1650 / 2300 2550 / 2550 Balance 1360 / 1360 710 / 60 -2550 / -2550 1200 / 1200 Weight 132 lb 4.438 oz 133 lb 6 oz - Constitutional no acute distress - *Routine HEENT Exam Head: Present: normocephalic Eye: Present: PERRL ENT: Present: mucous membranes moist - *Routine Neck Exam Present: supple. Absent: lymphadenopathy - *Routine Respiratory Exam Present: CTA bilaterally - *Routine Cardiovascular Exam Present: RRR - *Routine Abdominal Exam Present: soft, normoactive bowel sounds, tenderness - *Routine Extremities Exam Absent: cyanosis, clubbing, edema - *Routine Skin Exam Comments: dressing to midline incision c/d/i - *Routine Neurological Exam Present: alert, oriented X3 Assessment and Plan (1) Uterine hypertrophy Status: Acute Category: Medical Code(s): N85.2 - Hypertrophy of uterus (2) Anemia Status: Acute Category: Medical Code(s): D64.9 - Anemia, unspecified (3) Endometritis Status: Acute Category: Medical Code(s): N71.9 - Inflammatory disease of uterus, unspecified (4) Sepsis Status: Acute Qualifiers: Sepsis type: sepsis due to unspecified organism Sepsis acute organ dysfunction status: unspecified Qualified Code(s): A41.9 - Sepsis, unspecified organism Category: Medical Code(s): A41.9 - Sepsis, unspecified organism (5) UTI (urinary tract infection) Status: Acute Qualifiers: Urinary tract infection type: acute cystitis Hematuria presence: with hematuria Qualified Code(s): N30.01 - Acute cystitis with hematuria Category: Medical Code(s): N39.0 - Urinary tract infection, site not specified (6) Uterine fibroid Status: Acute Category: Medical Code(s): D25.9 - Leiomyoma of uterus, unspecified (7) Postoperative anemia Status: Acute Category: Medical Code(s): D64.9 - Anemia, unspecified (8) SIRS (systemic inflammatory response syndrome) Status: Acute Category: Medical Code(s): R65.10 - Systemic inflammatory response syndrome (SIRS) of non-infectious origin without acute organ dysfunction (9) Postoperative hemorrhage involving genitourinary system Status: Acute Category: Medical - Assessment and plan all Dx Assessment and Plan for all problems:: rounded with dr reilly all orders per dr reilly ok to dc from pcp standpoint follow up in office 1 week
--- NOTE | 2021-09-01 10:35 | PC.NURSE ---
09:35 - Late Entry: Discharge education provided. Questions encouraged and answered. Pt. and S.O. v/u.
--- NOTE | 2021-09-01 10:36 | PC.NURSE ---
09:40 - Late Entry: Pt. left unit via wheelchair. accompanied by staff x1 and S.O.
== END 2021-09-01 09:40 | disposition home or self-care (01) | DRG 742 ==
LOC: ER 17:14 → 2ND 08-26 08:31 → OB 08-28 19:48
PROVIDERS: Nurse Practitioner Family; Admitting Provider Nurse Practitioner Obstetrics & Gynecology; Emergency Provider Emergency Medicine; PCP Emergency Medicine; Visit Provider Nurse Practitioner Obstetrics & Gynecology
PROC: 0UT90ZZ Resection of Uterus, Open Approach (ICD-10-PCS; CPT 58150; principal; 2021-08-29 07:00)
DX: N85.2 Hypertrophy of uterus (principal); N17.9 Acute kidney failure, unspecified; N99.820 Postprocedural hemorrhage of a genitourinary system organ or structure following a genitourinary system procedure; D25.9 Leiomyoma of uterus, unspecified; D64.9 Anemia, unspecified; N39.0 Urinary tract infection, site not specified
CPT/HCPCS: 58150; 36415; 71045; 74177; 76830; 80048; 80053; 80074; 81001; 81025; 83605; 83690; 84484; 85007; 85014; 85018; 85025; 86850; 87040; 87086; 87088; 87186; 88305; 88307; 88342; 93005; 96365; 96367; 96375; 99285; C9803; J0696; J2405; J2543; J2710; P9016; Q9967; U0003; U0005

== ENCOUNTER 2022-03-24 07:16 | Emergency (ER) | payer MEDICAID, SELFPAY ==
[2022-03-24] VITALS (9 sets, daily range): BP systolic 100–129; BP diastolic 62–81; PULSE 63–105; RESP 16–20; TEMP 36.5–36.6; O2SAT 98–100; BMI 20.1
--- NOTE | 2022-03-24 07:16 | ECG_ITS ---
APPROVED REPORT Exam: Resting ECG HR:101 bpm ECG Measurements Heart Rate [address] 144 P 79 QRSd 86 QRS 74 QT 349 T 66 QTc 407 Conclusion SINUS TACHYCARDIA POSSIBLE LEFT ATRIAL ENLARGEMENT [-0.1mV P-WAVE IN V1/V2] NONSPECIFIC T-WAVE ABNORMALITY ABNORMAL RHYTHM ECG UNCONFIRMED REPORT Electronically signed by : Sanchez Griffin MD 03/24/2022 21:08:48
--- NOTE | 2022-03-24 07:27 | XR_ITS ---
FINAL REPORT CLINICAL HISTORY: pain into left shoulder COMPARISON: 08/25/2021 FINDINGS: PORTABLE CHEST. The heart is normal in size. The mediastinum is unremarkable. The lungs are clear. There is no pneumothorax. IMPRESSION: No acute process. Reviewed, Interpreted and Dictated by Александр Mckinnon MD Transcribed by Stefanie Hightower Authenticated and [facility]
--- NOTE | 2022-03-24 07:33 | HMH.EDCP ---
Discharge Plan Disposition Patient Disposition: Home, Self-Care Prescriptions Prescriptions: New prednisone [prednisone] 20 mg tablet 20 mg PO BID Qty: 10 0RF No Action prednisone 10 mg tablet 10 mg PO DAILY Qty: 10 0RF terbinafine HCl 250 mg tablet 250 mg PO DAILY Qty: 14 0RF buspirone 5 mg tablet 5 mg PO BID Qty: 60 1RF gabapentin 800 mg tablet 800 mg PO TID Qty: 90 1RF clonazepam [Klonopin] 0.5 mg tablet 0.5 mg PO QID Qty: 120 1RF hydrocodone-acetaminophen 5-325 mg tablet 1 tab PO BID Qty: 60 0RF ferrous sulfate 325 MG tablet 325 mg PO TID Qty: 90 2RF Referrals Follow up/Referrals: Provider,Referral, MD [Referring] - See instructions Clinical Impressions Clinical Impression: Chest pain, Pleurisy Instructions Patient Instructions: DI for Atypical Chest Pain Discharge ED Provider: Johnie Piedra Chest Pain HPI General Chief Complaint: Chest Pain Stated Complaint: Chest Pain Time Seen by Provider: 03/24/22 07:34 Mode of Arrival: Ambulatory Source of Information: Patient, Significant Other and Medical Record Limitations: No Limitations Description of Symptoms (Recalled from ER Triage Doc. by RN): to ed per car with c/o sharp lt side chest pain radiating into lt side back x 2 weeks. pt c/o sob, pain with inspiration and movement, nausea. 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79 mg/dl CHF [place] Class: I-No CHF Other Risk Factors: None Non-Stemi Risk Score: 78 Related Data Prior Cardiac Testing/Procedures: Echocardiogram On Oral Contraceptives: No Previous Rx's Medication Instructions Recorded ferrous sulfate 325 mg (65 mg 325 mg PO TID #90 tabs 09/01/21 iron) tablet buspirone 5 mg tablet 5 mg PO BID #60 tabs 02/23/22 clonazepam 0.5 mg tablet (Klonopin) 0.5 mg PO QID #120 tabs 02/23/22 gabapentin 800 mg tablet 800 mg PO TID #90 tabs 02/23/22 hydrocodone 5 mg-acetaminophen 325 1 tab PO BID #60 tabs 02/23/22 mg tablet prednisone 10 mg tablet 10 mg PO DAILY #10 tabs 02/23/22 terbinafine HCl 250 mg tablet 250 mg PO DAILY #14 tabs 02/23/22 prednisone 20 mg tablet 20 mg PO BID #10 tabs 03/24/22 Allergies Allergy/AdvReac Type Severity Reaction Status Date / Time No Known Allergies Allergy Verified 02/23/22 14:55 [facility] Social History (System 06/03/20 @ 09:20 by Abimbola Krause) Smoking Status: Current every day smoker second hand exposure: No alcohol intake: current substance use type: marijuana current occupational status: employed Travel in the last 8 weeks: None household members: spouse number of children: 3 ROS Obtained: Yes All systems reviewed & no additional complaints except as documented Constitutional Constitutional: Denies fever(s) Eyes Eyes: Denies eye discharge ENT Ears, Nose, Mouth, and Throat: Denies epistaxis Cardiovascular Cardiovascular: Reports chest pain at rest and Reports dyspnea Respiratory Respiratory: Reports as per HPI, Reports dyspnea and Reports pain on inspiration Gastrointestinal Gastrointestingal: Denies change in bowel habits Genitourinary Female Genitourinary: Denies hematuria Musculoskeletal Musculoskeletal: Denies joint stiffness Integumentary/Breasts Skin/Breast: Denies rash Neurologic Neurologic: Denies focal weakness Physical Exam General General appearance: natalee
[2022-03-24 07:34] LABS: Basophils # 0.1 K/mm3 (0-0.2); Basophils % 1.4 % (0.1-2.0); Eosinophils # 0.1 K/mm3 (0.0-0.4); Eosinophils % 1.5 % (0.1-12.0); Hemoglobin 15.7 g/dL (12.2-16.2); Lymphocytes # 1.3 K/mm3 (0.7-4.5); Lymphocytes % 22.3 % (10-50); Mean Corpuscular HGB Conc 34.1 g/dL (31.8-35.4); Mean Corpuscular Hemoglobin 30.7 pg (27.0-31.2); Mean Corpuscular Volume 90.2 fl (81-99); Mean Platelet Volume 8.3 fl (7.4-10.4); Monocytes # 0.4 K/mm3 (0.1-1.0); Monocytes % 6.7 % (1.7-9.3); Neutrophils # 3.9 K/mm3 (1.8-7.8); Platelet Count 243 K/mm3 (142-424); Red Cell Distribution Width 14.1 % (11.5-17.5); White Blood Count 5.7 K/mm3 (4.8-10.8)
--- NOTE | 2022-03-24 07:42 | PC.NURSE ---
Laith @ Bs for CXR
[2022-03-24 07:45] LABS: Anion Gap 15.3 mEq/L (5-15); Blood Urea Nitrogen 7 mg/dl (7-17); Calcium 9.1 mg/dl (8.4-10.2); Carbon Dioxide 30 mmol/L (22.0-30.0); Chloride 99 mmol/L (98-107); Creatinine Clearance Estimated 82 mL/min (50-200); Estimated Glomerular Filt Rate 91 ml/min (>60); GFR (African American) 111 ML/MIN (>60); Glucose 68 mg/dl (74-100); Potassium 3.3 mmoL/L (3.5-5.1); Sodium 141 mmol/L (136-145)
--- NOTE | 2022-03-24 07:54 | CT_ITS ---
FINAL REPORT TECHNIQUE: Thin section axial CT images were performed from the lung apices to the upper abdomen after the administration of IV contrast. 3-D and MIP reconstructions performed. This study was performed with techniques to keep radiation doses as low as reasonably achievable (ALARA). Individualized dose reduction techniques using automated exposure control or adjustment of mA and/or kV according to the patient''s size were employed. CLINICAL HISTORY: Pt experiencing angina since boxing x days ago, pain in Lt shoulder & @ sternum. Hx of asthma FINDINGS: There is no evidence for pulmonary embolism. The thoracic aorta is patent without evidence of dissection. There is no axillary adenopathy. There is no mediastinal or hilar adenopathy. The heart size is normal. There is no pleural or pericardial effusion. Lung window images demonstrate no suspicious pulmonary nodule or infiltrate. No fractures are identified. Limited images of the upper abdomen are unremarkable. IMPRESSION: No evidence of pulmonary embolism or aortic dissection. Reviewed, Interpreted and Dictated by Александр Mckinnon MD Transcribed by Iris Tomlin Authenticated and [facility]
--- NOTE | 2022-03-24 07:56 | PC.NURSE ---
Rn @ BS to give meds
[2022-03-24 07:58] LABS: Troponin I < 0.01 ng/ml (0.00-0.034)
--- NOTE | 2022-03-24 08:05 | PC.NURSE ---
xray called regarding chest ct
--- NOTE | 2022-03-24 08:11 | PC.NURSE ---
pt to ct
--- NOTE | 2022-03-24 08:46 | PC.NURSE ---
pt continues to c/o pain 02/11
[2022-03-24 11:21] LABS: Troponin I < 0.01 ng/ml (0.00-0.034)
== END 2022-03-24 10:57 | disposition home or self-care (01) ==
PROVIDERS: Emergency Provider Emergency Medicine; PCP Emergency Medicine
DX: R09.1 Pleurisy (principal); R07.9 Chest pain, unspecified; Z79.899 Other long term (current) drug therapy; Z72.0 Tobacco use; F12.90 Cannabis use, unspecified, uncomplicated; D64.9 Anemia, unspecified; M79.7 Fibromyalgia; F41.9 Anxiety disorder, unspecified
CPT/HCPCS: 36415; 71045; 71275; 80048; 84484; 85025; 93005; 99285; Q9967

== ENCOUNTER 2022-04-02 16:00 | Outpatient (RCR) | payer MEDICAID, SELFPAY ==
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
== END 2022-04-02 16:05 | disposition home or self-care (01) ==
LOC: PT 16:00
PROVIDERS: PCP Emergency Medicine; Visit Provider Emergency Medicine
DX: M54.50 Low back pain, unspecified (principal)
CPT/HCPCS: 97163

== ENCOUNTER → 2022-04-15 09:40 | Outpatient (CLI) | payer MEDICAID, SELFPAY ==
[2022-04-15 18:35] LABS: Amphetamine/Metha Screen,Urine Negative ng/ml (<1000)
[2022-04-15 18:38] LABS: Barbiturates Screen,Urine Negative ng/ml (<200); Benzodiazepines Screen,Urine Negative ng/ml (<200)
[2022-04-15 18:39] LABS: Cannabinoid Screen,Urine Positive ng/ml (<50)
[2022-04-15 18:40] LABS: Cocaine Screen,Urine Negative ng/ml (<300); Methadone Screen,Urine Negative ng/ml (<300)
[2022-04-15 18:41] LABS: Opiate Screen,Urine Negative ng/ml (<300)
[2022-04-15 18:42] LABS: Phencyclidine Screen,Urine Negative ng/ml (<25)
== END ==
PROVIDERS: PCP Emergency Medicine; Visit Provider Emergency Medicine
DX: Z79.899 Other long term (current) drug therapy (principal)
CPT/HCPCS: 80305

== ENCOUNTER → 2022-06-12 14:42 | Outpatient (CLI) | payer MEDICAID, SELFPAY ==
[2022-06-12 13:42] LABS: Amphetamine/Metha Screen,Urine Positive ng/ml (<1000)
[2022-06-12 13:43] LABS: Barbiturates Screen,Urine Negative ng/ml (<200); Benzodiazepines Screen,Urine Negative ng/ml (<200)
[2022-06-12 13:44] LABS: Cannabinoid Screen,Urine Positive ng/ml (<50); Cocaine Screen,Urine Negative ng/ml (<300)
[2022-06-12 13:45] LABS: Methadone Screen,Urine Negative ng/ml (<300)
[2022-06-12 13:46] LABS: Opiate Screen,Urine Negative ng/ml (<300); Phencyclidine Screen,Urine Negative ng/ml (<25)
== END ==
PROVIDERS: PCP Emergency Medicine; Visit Provider Emergency Medicine
DX: Z79.899 Other long term (current) drug therapy (principal)
CPT/HCPCS: 80305

== ENCOUNTER → 2022-08-11 23:00 | Outpatient (CLI) | payer MEDICAID, SELFPAY ==
[2022-08-12 17:49] LABS: Amphetamine/Metha Screen,Urine Positive ng/ml (<1000); Barbiturates Screen,Urine Negative ng/ml (<200); Benzodiazepines Screen,Urine Negative ng/ml (<200); Cannabinoid Screen,Urine Positive ng/ml (<50); Cocaine Screen,Urine Negative ng/ml (<300); Methadone Screen,Urine Negative ng/ml (<300); Opiate Screen,Urine Positive ng/ml (<300); Phencyclidine Screen,Urine Negative ng/ml (<25)
== END ==
PROVIDERS: PCP Emergency Medicine; Visit Provider Emergency Medicine
DX: Z79.899 Other long term (current) drug therapy (principal)
CPT/HCPCS: 80305

== ENCOUNTER 2022-09-13 18:53 | Emergency (ER) | payer MEDICAID, SELFPAY ==
[2022-09-13 19:03] VITALS: BP 132/82; PULSE 103; RESP 24; TEMP 36.6; O2SAT 98; BMI 20.2
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
--- NOTE | 2022-09-13 19:16 | PC.NURSE ---
Patient gone to RAD at this time.
--- NOTE | 2022-09-13 19:18 | PC.NURSE ---
patient back in room at this time.
[2022-09-13 19:30] VITALS: BP 103/62; PULSE 69; O2SAT 100
[2022-09-13 19:42] LABS: VBG Base Excess -1.3 mmol/L (-2.4-2.3); VBG HCO3 23.8 mmol/L (23-30); VBG Oxygen Saturation 76.8 % (50-70); VBG PCO2 41.2 mmol/L (35-51); VBG PH 7.38 mmol/L (7.31-7.41); VBG PO2 42.1 mmol/L (28-40); VBG Total CO2 25.1 mmol/L (23-27)
--- NOTE | 2022-09-13 19:57 | PC.NURSE ---
at bedside talking with patient.
--- NOTE | 2022-09-13 20:02 | PC.NURSE ---
Dr. Piedra at bedside speaking with pt
[2022-09-13 20:14] VITALS: BP 126/69; PULSE 74; RESP 17; TEMP 36.8; O2SAT 97
[2022-09-13 20:17] LABS: Hemoglobin A1C 4.6 % (4.0-6.0)
== END 2022-09-13 20:15 | disposition home or self-care (01) ==
PROVIDERS: Emergency Provider Emergency Medicine; PCP Emergency Medicine
DX: T54.3X1A Toxic effect of corrosive alkalis and alkali-like substances, accidental (unintentional), initial encounter (principal); T54.2X1A Toxic effect of corrosive acids and acid-like substances, accidental (unintentional), initial encounter; J68.8 Other respiratory conditions due to chemicals, gases, fumes and vapors; R06.02 Shortness of breath; J44.9 Chronic obstructive pulmonary disease, unspecified; F17.210 Nicotine dependence, cigarettes, uncomplicated
CPT/HCPCS: 71046; 82803; 83036; 96374; 99284

== ENCOUNTER 2022-09-16 14:15 | Emergency (ER) | payer MEDICAID, SELFPAY ==
[2022-09-16] VITALS (16 sets, daily range): BP systolic 98–142; BP diastolic 59–92; PULSE 61–80; RESP 16–19; TEMP 36.8; O2SAT 97–100; BMI 20.5; BMI 21.2
--- NOTE | 2022-09-16 14:14 | ECG_ITS ---
APPROVED REPORT Exam: Resting ECG HR:71 bpm ECG Measurements Heart Rate 71 AXES DE 144 P 77 QRSd 94 QRS 79 QT 407 T 76 QTc 429 Conclusion SINUS RHYTHM NORMAL ECG UNCONFIRMED REPORT Electronically signed by : Sanchez Griffin MD 09/16/2022 20:24:04
--- NOTE | 2022-09-16 14:18 | PC.NURSE ---
Dr. Barksdale to bedside
--- NOTE | 2022-09-16 14:20 | PC.NURSE ---
stroke alert called at this time
--- NOTE | 2022-09-16 14:21 | CT_ITS ---
FINAL REPORT TECHNIQUE: Axial images of the head were obtained without contrast. Coronal reformatted images were also obtained.This study was performed with techniques to keep radiation doses as low as reasonably achievable (ALARA). Individualized dose reduction techniques using automated exposure control or adjustment of mA and/or kV according to the patient's size were employed. CLINICAL HISTORY: stroke alert, ams, headache COMPARISON: None FINDINGS: There is no evidence of intracranial hemorrhage or mass. The ventricular size is within normal limits. There is no evidence of shift of the midline structures. No abnormal extra axial fluid collection is identified. No skull abnormality is seen on the bone window images. IMPRESSION: No acute intracranial abnormality. Reviewed, Interpreted and Dictated by Nacho Glez III, MD Transcribed by Celestina Garces Authenticated and [facility]
--- NOTE | 2022-09-16 14:23 | XR_ITS ---
FINAL REPORT CLINICAL HISTORY: chest pain FINDINGS: A single portable view of the chest was obtained. The heart size and pulmonary vascularity are within normal limits. The mediastinum is within normal limits. No acute pulmonary abnormality is identified. The bony thorax is intact. IMPRESSION: No active cardiopulmonary disease. Reviewed, Interpreted and Dictated by Nacho Glez III, MD Transcribed by Stefanie Hightower Authenticated and [facility]
--- NOTE | 2022-09-16 14:26 | HMH.EDGENADL ---
Discharge Plan Disposition Patient Disposition: Left Against Medical Advice Condition: Good Prescriptions Prescriptions: No Action terbinafine HCl 250 mg tablet 250 mg PO DAILY Qty: 14 0RF lidocaine 5 % adhesive patch,medicated 1 patch topical DAILY Qty: 30 0RF Rx Instructions: leave on most painful area for up to 12 hrs diclofenac sodium 1 % gel 2 g topical QID Qty: 100 0RF Rx Instructions: apply to single elbow, wrist or hand; for hand includes palm/fingers/back of hand buspirone 10 mg tablet 10 mg PO BID Qty: 60 2RF dextroamphetamine-amphetamine [Adderall] 10 mg tablet 10 mg PO DAILY Qty: 30 0RF clonazepam [Klonopin] 1 mg tablet 1 mg PO TID Qty: 90 0RF gabapentin 800 mg tablet 800 mg PO TID Qty: 90 0RF oxycodone-acetaminophen [Percocet] 10-325 mg tablet 1 tab PO TID Qty: 90 0RF ferrous sulfate 325 MG tablet 325 mg PO TID Qty: 90 2RF Referrals Follow up/Referrals: Johnie Piedra MD [Primary Care Provider] - See instructions Activity Restrictions/Add. Instructions Additional Instructions/Restrictions: Take aspirin [address] Piedra to arrange appointment for further care and outpatient MRI of brain. Return to the emergency department if worsening numbness or weakness, or new symptoms such as visual disturbance or speech disturbance. Call Dr. Ferguson to arrange outpatient appointment for further evaluation of chest pain. Additional instructions for CHEST PAIN: See your physician as soon as possible for further evaluation. Return immediately if worsening chest pain, vomiting, shortness of breath, fever, coughing of blood. Clinical Impressions Clinical Impression: Chest pain, Acute left-sided weakness, Left sided numbness Instructions Patient Instructions: DI for Chest Pain, DI for Numbness/Tingling Discharge ED Provider: Victor M Barksdale General Adult HPI General Chief complaint: Neuro Symptoms/Deficit Stated complaint: chest pain Time Seen by Provider: 09/16/22 14:15 History of Present Illness HPI narrative: The patient presents with initial complaint of chest pain. However she then goes on to state that yesterday at about 3 PM she developed numbness and tingling of her entire left side, face, arm, and leg. She apparently had trouble walking and had to be carried to bed. Her pantographer states that she was dragging her left leg and could not lift her left arm, had left-sided facial weakness so that when she smiled the right side of her face would smile but the left would not, but refused to come to the emergency room at that time. Associated with a headache. Blurry vision, but no double vision or loss of vision. No speech problem recalled. She says that she also has had severe pain on the left side of her neck since before the symptoms started yesterday. The neck pain persists. She was able to go to work today. Reportedly not dragging her leg today and able to use her left arm. States that both of her hands and both of her feet are tingly. Left side of her face is tingly. Today she developed chest pain associated with shortness of breath, nausea, and feeling hot, cold, and sweaty about an hour ago. She also has low back pain today. She says she has a history of prolapse of the heart valve. No other cardiac problems known. She does not have known hypertension or hyperlipidemia, but says that her face turns red all of the time which leads her to believe that her blood pressure is elevated when this happens. She is a smoker, but says she is quitting. Related Data Previous Rx's Medication Instructions Recorded ferrous sulfate 325 mg (65 mg 325 mg PO TID #90 tabs 09/01/21 iron) tablet terbinafine HCl 250 mg tablet 250 mg PO DAILY #14 tabs 02/23/22 diclofenac sodium 1 % topical gel 2 g topical QID #100 grams 04/15/22 lidocaine 5 % topical patch 1 patch topical DAILY #30 ea 04/15/22 buspirone 10 mg tablet 10 mg PO BID #6
--- NOTE | 2022-09-16 14:27 | PC.NURSE ---
pt to CT
--- NOTE | 2022-09-16 14:28 | PC.NURSE ---
glucose 101
[2022-09-16 14:30] LABS: POC Glucose,Bedside 101 (70-110)
--- NOTE | 2022-09-16 14:30 | PC.NURSE ---
pt returns from CT
[2022-09-16 14:43] LABS: Chloride 103 mmol/L (98-107); Potassium 3.8 mmoL/L (3.5-5.1); Sodium 139 mmol/L (136-145)
[2022-09-16 14:44] LABS: Basophils % 0.5 % (0.1-2.0); Eosinophils # 0.1 K/mm3 (0.0-0.4); Eosinophils % 1.2 % (0.1-12.0); Hematocrit 41.6 % (37.0-47.0); Hemoglobin 13.7 g/dL (12.2-16.2); Lymphocytes # 1.6 K/mm3 (0.7-4.5); Lymphocytes % 34.8 % (10-50); Mean Corpuscular Hemoglobin 29.6 pg (27.0-31.2); Mean Corpuscular Volume 89.7 fl (81-99); Mean Platelet Volume 8.8 fl (7.4-10.4); Monocytes # 0.2 K/mm3 (0.1-1.0); Monocytes % 4.3 % (1.7-9.3); Neutrophils # 2.8 K/mm3 (1.8-7.8); Neutrophils % 59.1 % (37.0-80.0); Platelet Count 214 K/mm3 (142-424); Red Blood Count 4.64 M/mm3 (4.20-5.40); Red Cell Distribution Width 14.5 % (11.5-17.5); White Blood Count 4.7 K/mm3 (4.8-10.8)
[2022-09-16 14:46] LABS: Alanine Aminotransferase 21 U/L (12-78); Albumin Level 4.7 g/dl (3.5-5.0); Albumin/Globulin Ratio 1.4 (1.1-1.8); Alkaline Phosphatase 85 U/L (38-126); Anion Gap 8.8 mEq/L (5-15); Aspartate Amino Transferase 39 U/L (14-36); Bilirubin,Total 1.1 mg/dl (0.2-1.3); Blood Urea Nitrogen 10 mg/dl (7-17); Carbon Dioxide 31 mmol/L (22.0-30.0); Creatinine Clearance Estimated 104 mL/min (50-200); Estimated Glomerular Filt Rate 109 ml/min (>60); GFR (African American) 132 ML/MIN (>60); Globulin 3.3 g/dL (1.3-3.2)
[2022-09-16 14:47] LABS: Calcium 8.9 mg/dl (8.4-10.2); Glucose 73 mg/dl (74-100)
--- NOTE | 2022-09-16 14:51 | PC.NURSE ---
ER Doctor wanted [facility] called to speak with the stroke team. called and spoke with [facility], gave information. placed on hold, [facility] came on and spoke with ER Doctor and advised him we would have to call back after imges were power shared
--- NOTE | 2022-09-16 14:55 | CT_ITS ---
FINAL REPORT TECHNIQUE: Thin section axial CT with IV contrast supplemented with multiplanar reconstruction under CT angiogram protocol. This study was performed with techniques to keep radiation doses as low as reasonably achievable (ALARA). Individualized dose reduction techniques using automated exposure control or adjustment of mA and/or kV according to the patient''s size were employed. NASCET criteria was utilized during interpretation. CLINICAL HISTORY: stroke symptoms FINDINGS: Aortic arch: Arch shows no significant narrowing. Great vessel origins are widely patent. Right carotid: No significant stenosis is seen of the cervical common or internal carotid artery. Left carotid: No significant stenosis is seen of the cervical common or internal carotid artery. Vertebral: Left vertebral artery is dominant. No significant stenosis is present. IMPRESSION: No significant stenosis. Reviewed, Interpreted and Dictated by Nacho Glez III, MD Transcribed by Iris Tomlin Authenticated and [facility]
--- NOTE | 2022-09-16 14:55 | CT_ITS ---
FINAL REPORT TECHNIQUE: Thin section axial CT with IV contrast supplemented with multiplanar reconstruction under CT angiogram protocol. 3-D reconstructions were performed. This study was performed with techniques to keep radiation doses as low as reasonably achievable (ALARA). Individualized dose reduction techniques using automated exposure control or adjustment of mA and/or kV according to the patient''s size were employed. CLINICAL HISTORY: stroke symptoms FINDINGS: The distal vertebral, basilar and distal internal carotid arteries have an unremarkable appearance. No aneurysm is seen. Major intracranial vessels are patent without significant stenosis. IMPRESSION: No evidence of significant stenosis. Reviewed, Interpreted and Dictated by Nacho Glez III, MD Transcribed by Iris Tomlin Authenticated and [facility]
--- NOTE | 2022-09-16 14:59 | PC.NURSE ---
called [facility] back and advised them images had been power shared. they advised me that as soon as they look at them that the Doctor there would call back here to the ER
[2022-09-16 15:01] LABS: Troponin I < 0.01 ng/ml (0.00-0.034)
--- NOTE | 2022-09-16 15:02 | PC.NURSE ---
pt back to CT for contrast imaging
--- NOTE | 2022-09-16 15:02 | PC.NURSE ---
pt to ct
--- NOTE | 2022-09-16 15:13 | PC.NURSE ---
pt returned from CT.
--- NOTE | 2022-09-16 15:25 | PC.NURSE ---
[facility] called back and call was transferred to ER Doctor.
--- NOTE | 2022-09-16 16:09 | PC.NURSE ---
spoke with [facility] for neuro stroke consult. they didnt recommend any immediate intervention at this time and recommended pt follow up for outpatient MRI
--- NOTE | 2022-09-16 16:40 | PC.NURSE ---
rounded on pt, pt sleeping with family at bs
--- NOTE | 2022-09-16 17:42 | PC.NURSE ---
pt states that she is unable to stay and needs to leave. Second trop to be drawn but pt states that no matter what she isnt staying and requested that her IV be removed so she can leave. fu instructions given. aware
[2022-09-16 18:20] LABS: Troponin I < 0.01 ng/ml (0.00-0.034)
== END 2022-09-16 17:43 | disposition left against medical advice (07) ==
PROVIDERS: Emergency Provider Emergency Medicine; PCP Emergency Medicine
DX: R07.89 Other chest pain (principal); R53.1 Weakness; R20.2 Paresthesia of skin; D64.9 Anemia, unspecified; F17.210 Nicotine dependence, cigarettes, uncomplicated; F41.9 Anxiety disorder, unspecified; M79.7 Fibromyalgia; Z90.711 Acquired absence of uterus with remaining cervical stump
CPT/HCPCS: 70450; 70496; 70498; 71045; 80053; 82962; 84484; 85025; 93005; 99285; Q9967

== ENCOUNTER → 2022-10-07 02:00 | Outpatient (CLI) | payer MEDICAID, SELFPAY ==
[2022-10-07 18:29] LABS: Amphetamine/Metha Screen,Urine Negative ng/ml (<1000); Barbiturates Screen,Urine Negative ng/ml (<200)
[2022-10-07 18:30] LABS: Benzodiazepines Screen,Urine Negative ng/ml (<200)
[2022-10-07 18:31] LABS: Cannabinoid Screen,Urine Positive ng/ml (<50); Cocaine Screen,Urine Negative ng/ml (<300)
[2022-10-07 18:32] LABS: Methadone Screen,Urine Negative ng/ml (<300); Opiate Screen,Urine Negative ng/ml (<300)
[2022-10-07 18:33] LABS: Phencyclidine Screen,Urine Negative ng/ml (<25)
== END ==
PROVIDERS: PCP Emergency Medicine; Visit Provider Emergency Medicine
DX: Z79.899 Other long term (current) drug therapy (principal)
CPT/HCPCS: 80305

== ENCOUNTER → 2022-10-07 11:40 | Outpatient (CLI) | payer MEDICAID, SELFPAY | PROVIDERS: PCP Emergency Medicine; Visit Provider Emergency Medicine | DX: Z79.899 Other long term (current) drug therapy (principal) ==

== ENCOUNTER → 2022-12-02 23:10 | Outpatient (CLI) | payer MEDICAID, SELFPAY ==
[2022-12-02 13:44] LABS: Amphetamine/Metha Screen,Urine Negative ng/ml (<1000)
[2022-12-02 13:47] LABS: Barbiturates Screen,Urine Negative ng/ml (<200)
[2022-12-02 13:48] LABS: Benzodiazepines Screen,Urine Negative ng/ml (<200)
[2022-12-02 13:49] LABS: Cannabinoid Screen,Urine Positive ng/ml (<50)
[2022-12-02 13:51] LABS: Cocaine Screen,Urine Negative ng/ml (<300); Methadone Screen,Urine Negative ng/ml (<300)
[2022-12-02 13:52] LABS: Opiate Screen,Urine Negative ng/ml (<300)
[2022-12-02 13:53] LABS: Phencyclidine Screen,Urine Negative ng/ml (<25)
== END ==
PROVIDERS: PCP Emergency Medicine; Visit Provider Emergency Medicine
DX: Z79.899 Other long term (current) drug therapy (principal)
CPT/HCPCS: 80305

== ENCOUNTER → 2023-01-27 16:38 | Outpatient (CLI) | payer MEDICAID, SELFPAY ==
[2023-01-27 13:39] LABS: Barbiturates Screen,Urine Negative ng/ml (<200)
[2023-01-27 13:40] LABS: Amphetamine/Metha Screen,Urine Positive ng/ml (<1000); Benzodiazepines Screen,Urine Negative ng/ml (<200)
[2023-01-27 13:41] LABS: Cannabinoid Screen,Urine Positive ng/ml (<50)
[2023-01-27 13:42] LABS: Cocaine Screen,Urine Negative ng/ml (<300); Methadone Screen,Urine Negative ng/ml (<300)
[2023-01-27 13:43] LABS: Opiate Screen,Urine Negative ng/ml (<300)
[2023-01-27 13:44] LABS: Phencyclidine Screen,Urine Negative ng/ml (<25)
== END ==
PROVIDERS: PCP Emergency Medicine; Visit Provider Emergency Medicine
DX: Z79.899 Other long term (current) drug therapy (principal)
CPT/HCPCS: 80305

== ENCOUNTER → 2023-03-24 01:10 | Outpatient (CLI) | payer MEDICAID, SELFPAY ==
[2023-03-24 20:01] LABS: Basophils % 0.3 % (0.1-2.0); Eosinophils # 0.1 K/mm3 (0.0-0.4); Eosinophils % 1.2 % (0.1-12.0); Hematocrit 40.6 % (37.0-47.0); Hemoglobin 13.3 g/dL (12.2-16.2); Lymphocytes % 43.2 % (10-50); Mean Corpuscular HGB Conc 32.7 g/dL (31.8-35.4); Mean Corpuscular Hemoglobin 29.2 pg (27.0-31.2); Mean Corpuscular Volume 89.4 fl (81-99); Mean Platelet Volume 9.7 fl (7.4-10.4); Monocytes # 0.2 K/mm3 (0.1-1.0); Monocytes % 4.3 % (1.7-9.3); Neutrophils # 2.3 K/mm3 (1.8-7.8); Neutrophils % 50.9 % (37.0-80.0); Platelet Count 181 K/mm3 (142-424); Red Blood Count 4.54 M/mm3 (4.20-5.40); Red Cell Distribution Width 13.5 % (11.5-17.5); White Blood Count 4.6 K/mm3 (4.8-10.8)
[2023-03-24 20:16] LABS: Alanine Aminotransferase 19 U/L (12-78); Albumin Level 4.3 g/dl (3.5-5.0); Albumin/Globulin Ratio 1.6 (1.1-1.8); Alkaline Phosphatase 69 U/L (38-126); Aspartate Amino Transferase 29 U/L (14-36); Bilirubin,Total 0.6 mg/dl (0.2-1.3); Blood Urea Nitrogen 7 mg/dl (7-17); Calcium 8.9 mg/dl (8.4-10.2); Carbon Dioxide 27 mmol/L (22.0-30.0); Chloride 101 mmol/L (98-107); Estimated Glomerular Filt Rate 91 ml/min (>60); GFR (African American) 110 ML/MIN (>60); Globulin 2.7 g/dL (1.3-3.2); Glucose 102 mg/dl (74-100); Sodium 137 mmol/L (136-145)
[2023-03-24 21:17] LABS: Iron 78 ug/dL (37-170)
[2023-03-24 21:47] LABS: Total Iron Binding Capacity 299 ug/dL (265-497)
[2023-03-24 23:16] LABS: Amphetamine/Metha Screen,Urine Positive ng/ml (<1000)
[2023-03-24 23:17] LABS: Barbiturates Screen,Urine Negative ng/ml (<200)
[2023-03-24 23:18] LABS: Benzodiazepines Screen,Urine Negative ng/ml (<200); Cannabinoid Screen,Urine Positive ng/ml (<50)
[2023-03-24 23:19] LABS: Cocaine Screen,Urine Negative ng/ml (<300)
[2023-03-24 23:20] LABS: Methadone Screen,Urine Negative ng/ml (<300); Opiate Screen,Urine Positive ng/ml (<300)
[2023-03-24 23:21] LABS: Phencyclidine Screen,Urine Negative ng/ml (<25)
[2023-03-26 08:36] LABS: Estradiol 82.2 pg/mL (.)
== END ==
PROVIDERS: PCP Emergency Medicine; Visit Provider Emergency Medicine
DX: M79.7 Fibromyalgia (principal); D64.9 Anemia, unspecified; F41.9 Anxiety disorder, unspecified; Z79.899 Other long term (current) drug therapy
CPT/HCPCS: 80053; 80305; 82670; 83540; 83550; 85025

== ENCOUNTER 2023-03-24 15:42 | Outpatient (CLI) | payer MEDICAID, SELFPAY ==
[2023-03-24 16:00] VITALS: BP 87/60; PULSE 65; RESP 16; TEMP 36.6; O2SAT 96
[2023-03-24 16:49] VITALS: BP 98/58; PULSE 57; RESP 16; O2SAT 97
[2023-03-24 17:41] VITALS: BP 111/63; PULSE 53; RESP 16; O2SAT 97
== END 2023-03-24 17:43 | disposition home or self-care (01) ==
LOC: INF 15:43
PROVIDERS: PCP Emergency Medicine; Visit Provider Emergency Medicine
DX: I95.9 Hypotension, unspecified (principal); E86.0 Dehydration; F41.9 Anxiety disorder, unspecified; F90.9 Attention-deficit hyperactivity disorder, unspecified type; M79.7 Fibromyalgia; Z79.899 Other long term (current) drug therapy; D64.9 Anemia, unspecified
CPT/HCPCS: 96360; 96361

== ENCOUNTER → 2023-04-20 12:45 | Outpatient (CLI) | payer MEDICAID, SELFPAY ==
--- NOTE | 2023-04-20 12:51 | XR_ITS ---
FINAL REPORT CLINICAL HISTORY: rt elbow pain COMPARISON: None FINDINGS: AP, oblique, and lateral views of the right elbow were obtained. There is no prior exam for comparison. There is no acute fracture or dislocation. Joint space is preserved. There is no joint effusion or other soft tissue abnormality. IMPRESSION: No acute osseous abnormality of the right elbow. Reviewed, Interpreted and Dictated by Nacho Glez III, MD Transcribed by Claire Toney Authenticated and [facility]
--- NOTE | 2023-04-20 12:51 | XR_ITS ---
FINAL REPORT CLINICAL HISTORY: shoulder pain COMPARISON: None FINDINGS: RIGHT SHOULDER Three views demonstrate no acute fracture. There is mild elevation of the distal clavicle, and a mild acromioclavicular separation cannot be excluded. The joint spaces appear normal. The visualized bony structures are well aligned. No soft tissue abnormality is seen. IMPRESSION: Mild elevation of the right distal clavicle, cannot exclude a mild acromioclavicular separation. Reviewed, Interpreted and Dictated by Nacho Glez III, MD Transcribed by Claire Toney Authenticated and . [facility]
== END ==
PROVIDERS: PCP Emergency Medicine; Referring Provider Orthopaedic Surgery; Visit Provider Emergency Medicine
DX: M25.521 Pain in right elbow (principal); M25.511 Pain in right shoulder
CPT/HCPCS: 73030; 73080

== ENCOUNTER → 2023-04-28 06:20 | Outpatient (CLI) | payer MEDICAID, SELFPAY ==
[2023-04-28 19:21] LABS: Benzodiazepines Screen,Urine Negative ng/ml (<200)
[2023-04-28 19:22] LABS: Amphetamine/Metha Screen,Urine Negative ng/ml (<1000); Barbiturates Screen,Urine Negative ng/ml (<200)
[2023-04-28 19:23] LABS: Cannabinoid Screen,Urine Positive ng/ml (<50)
[2023-04-28 19:24] LABS: Cocaine Screen,Urine Negative ng/ml (<300)
[2023-04-28 19:25] LABS: Methadone Screen,Urine Negative ng/ml (<300); Opiate Screen,Urine Negative ng/ml (<300)
[2023-04-28 19:26] LABS: Phencyclidine Screen,Urine Negative ng/ml (<25)
== END ==
PROVIDERS: PCP Emergency Medicine; Visit Provider Emergency Medicine
DX: Z79.899 Other long term (current) drug therapy (principal)
CPT/HCPCS: 80305

== ENCOUNTER → 2023-05-20 12:39 | Outpatient (CLI) | payer MEDICAID, SELFPAY ==
[2023-05-20 13:54] LABS: Alanine Aminotransferase 22 U/L (12-78); Albumin Level 4.6 g/dl (3.5-5.0); Albumin/Globulin Ratio 1.6 (1.1-1.8); Alkaline Phosphatase 79 U/L (38-126); Anion Gap 12.9 mEq/L (5-15); Aspartate Amino Transferase 34 U/L (14-36); Bilirubin,Total 0.7 mg/dl (0.2-1.3); Blood Urea Nitrogen 7 mg/dl (7-17); Calcium 9.7 mg/dl (8.4-10.2); Carbon Dioxide 30 mmol/L (22.0-30.0); Chloride 100 mmol/L (98-107); Estimated Glomerular Filt Rate 109 ml/min (>60); GFR (African American) 131 ML/MIN (>60); Globulin 2.9 g/dL (1.3-3.2); Glucose 80 mg/dl (74-100); Potassium 3.9 mmoL/L (3.5-5.1); Sodium 139 mmol/L (136-145); Total Protein,Serum 7.5 g/dl (6.3-8.2)
== END ==
PROVIDERS: PCP Emergency Medicine; Visit Provider Obstetrics & Gynecology
DX: R53.83 Other fatigue (principal)
CPT/HCPCS: 36415; 80053

== ENCOUNTER → 2023-05-31 12:57 | Outpatient (CLI) | payer MEDICAID, SELFPAY ==
--- NOTE | 2023-05-31 12:58 | MR_ITS ---
FINAL REPORT TECHNIQUE: Multiplanar MR without contrast CLINICAL HISTORY: right shoulder pain FINDINGS: Marrow signal: Unremarkable Glenohumeral joint: Physiologic effusion. No significant degenerative changes. AC joint: No obvious impingement. No significant hypertrophic changes. Small amount of fluid is seen in the subacromial bursa presumably related to bursitis. Rotator cuff: No evidence of tear Labrum: Normal morphology without tear Biceps tendon: Intra-articular long head biceps tendon intact. IMPRESSION: 1. No evidence of rotator cuff or labral tear 2. Findings suggestive of subacromial bursitis. Reviewed, Interpreted and Dictated by Miguel Bautista MD Transcribed by Dodie Shore Authenticated and [facility]
== END ==
PROVIDERS: PCP Emergency Medicine; Visit Provider Emergency Medicine
DX: M25.511 Pain in right shoulder (principal)
CPT/HCPCS: 73221

== ENCOUNTER → 2023-06-22 23:15 | Outpatient (CLI) | payer MEDICAID, SELFPAY ==
[2023-06-22 18:36] LABS: Amphetamine/Metha Screen,Urine Negative ng/ml (<1000)
[2023-06-22 18:37] LABS: Cannabinoid Screen,Urine Positive ng/ml (<50)
[2023-06-22 18:38] LABS: Barbiturates Screen,Urine Negative ng/ml (<200)
[2023-06-22 18:39] LABS: Benzodiazepines Screen,Urine Negative ng/ml (<200); Cocaine Screen,Urine Negative ng/ml (<300)
[2023-06-22 18:40] LABS: Methadone Screen,Urine Negative ng/ml (<300)
[2023-06-22 18:41] LABS: Opiate Screen,Urine Negative ng/ml (<300); Phencyclidine Screen,Urine Negative ng/ml (<25)
== END ==
PROVIDERS: PCP Internal Medicine; Visit Provider Internal Medicine
DX: Z79.899 Other long term (current) drug therapy (principal)
CPT/HCPCS: 80305

== ENCOUNTER 2023-07-27 08:45 | Outpatient (RCR) | payer MEDICAID, SELFPAY ==
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
== END 2023-07-27 10:00 | disposition home or self-care (01) ==
LOC: PT 08:45
PROVIDERS: PCP Internal Medicine; Visit Provider Orthopaedic Surgery
DX: M54.2 Cervicalgia (principal)
CPT/HCPCS: 97163

== ENCOUNTER 2025-02-21 08:40 | Outpatient (CLI) | payer MEDICAID, SELFPAY ==
--- OUTSIDE RECORDS SUMMARY | 2025-02-22 14:33 | XMS_ITS | Clinical Summary ---
Author Organization [facility] Address [address] [place] [address] Care Team Providers Care Signaler Name Role Phone Johnie Piedra MD Primary Care Provider + [phone] Allergies No known active allergies Immunizations Immunization Administration Dates Next Due Tdap 12/26/2022 Social History Tobacco Use Types Packs/Day Years Used Date Smoking Tobacco: Never Assessed Comments Unknown Sex and Gender Information Value Date Recorded Sex Assigned at Not on file Legal Sex Female 7:28 PM EDT Gender Identity Not on file Sexual Orientation Not on file Last Filed Vital Signs Vital Sign Reading Time Taken Comments Blood Pressure 89/65 12/26/2022 6:18 PM EDT Pulse 87 12/26/2022 6:18 PM EDT Temperature 36.9 C (98.4 F) 12/26/2022 6:18 PM EDT Respiratory Rate 18 12/26/2022 6:18 PM EDT Oxygen Saturation 94% 12/26/2022 6:29 PM EDT Inhaled Oxygen Concentration - - Weight - - Height - - Body Mass Index - - Plan of Treatment Health Maintenance Due Date Last Done Comments [facility]-Depression Screening 1979 [facility]-HIV Screening 1979 [facility]-Hepatitis C Screening 1979 [facility]-/Child/Adol SDOH Screenings 1979 [facility]- SDOH Screenings 1997 [facility]-Adult SDOH Screenings 1997 [facility]-Hepatitis B Vaccines (1 of 3 - 19+ 3-dose series) 1998 [facility]-Pap Smear 02/21/2000 [facility]-Cervical Cancer Screening 2009 [facility]-HPV/Cotest 2009 CT Colonography 02/21/2024 Colonoscopy 02/21/2024 FIT-DNA 02/21/2024 FIT 02/21/2024 FOBT 02/21/2024 Sigmoidoscopy 02/21/2024 [facility]-Colorectal Cancer Screening 02/21/2024 [id number] Vaccine (1 - 20 24-25 season) 2024 [facility]-Influenza Vaccine (#1) 2025 [facility]-Zoster Vaccines (1 of 2) 2029 [facility]-DTaP,Tdap,and Td Vaccine s (2 - Td or Tdap) 12/26/2032 12/26/2022 HPV Vaccines Aged Out No longer eligi ble based on patient's age to complete this topic [facility]-HIB Vaccines Aged Out No longer e ligible based on patient's age to complete this topic [facility]-Hepatitis A Vaccines Aged Out No longer eligible based on patient's age to complete this topic [facility]-IPV Vaccines Aged Out No longer e ligible based on patient's age to complete this topic [facility]-Pneumococcal Vaccine: Pediatrics (0 to 5 Years) and At-Risk Patients (6 to 49 Years) Aged Out No long er eligible based on patient's age to complete this topic [facility]-Rotavirus Vaccines Aged Out No lo nger eligible based on patient's age to complete this topic Insurance [employer] Care Teams Signaler Relationship Specialty Start Date End Date Johnie Piedra MD [address] [place] [id number] PCP - General 12/26/22
== END 2025-02-21 23:59 | disposition home or self-care (01) ==
LOC: LAB.DROPOF 02-22 14:29
PROVIDERS: PCP Nurse Practitioner Family; Visit Provider Nurse Practitioner Family
DX: R39.15 Urgency of urination (principal)
CPT/HCPCS: 87086; 87088